=== PATIENT | female | born 1950 | race Caucasian/White ===

== ENCOUNTER 2016-12-27 08:02 | Emergency (ER) | payer OTHER, BC ==
[2016-12-27 08:18] VITALS: BP 102/54; PULSE 76; TEMP 97.5
[2016-12-27] MEDS ORDERED: TETRACAINE 0.5% OPHTH SOLN 2 ML BOTTLE ONE (08:24)
--- NOTE | 2016-12-27 08:41 | PDOC ---
History of Present Illness - General Chief Complaint: Eye Problem Stated Complaint: PAIN LEFT EYE Time Seen by Provider: 12/27/16 08:18 History Source: Patient - History of Present Illness Timing/Duration: other Severity: moderate Associated Symptoms: denies: headaches Past History - Past Medical History Allergies/Adverse Reactions: Allergies Allergy/AdvReac Type Severity Reaction Status Date / Time wheat AdvReac Intermediate joint pain Verified 12/27/16 08:12 Home Medications: Ambulatory Orders Acetaminophen [Tylenol .Regular Strength -] 650 mg PO Q6H PRN #30 tablet Arformoterol Tartrate [Brovana -] 1 neb NEB BID #60 vial 02/06/13 Cetirizine HCl [Zyrtec] 10 mg PO DAILY #0 tablet 02/06/13 Mometasone Furoate [Asmanex 220Mcg -] 2 inh IH HS #1 ih 02/06/13 Montelukast Na [Singulair -] 10 mg PO HS #30 tablet 02/06/13 Thyroid,Pork [[place] Thyroid] 30 mg PO BID #30 02/06/13 Tiotropium [place] [Spiriva] 1 inh IH DAILY #1 inh 02/06/13 Aspirin [ASA -] 81 mg PO DAILY 12/23/13 Triamcinolone Acetonide [Nasacort] 10.8 ml NS DAILY 09/16/15 Anemia: (VEIN INFECTED HOSPITALIZED X 1 WEEK) Cardiac Disorders: Yes (stent 2012) COPD: Yes Thyroid Disease: Yes - Surgical History Abdominal Surgery: Yes (ectopic ) Cardiac Surgery: Yes (STENT PLACED 07/20/13) - Immunization History Immunization Up to Date: (FLU 2011 AND PNA 2009) - Psycho/Social/Smoking Cessation Hx Anxiety: No Suicidal Ideation: No Smoking Status: No Smoking History: Former smoker Have you smoked in the past 12 months: No Number of Cigarettes Smoked Daily: 0 If you are a former smoker, when did you quit?: 25 YRS Information on smoking cessation initiated: No Hx Alcohol Use: Yes (SOCIAL) Drug/Substance Use Hx: No Substance Use Type: None Hx Substance Use Treatment: No Review of Systems - Review of Systems Constitutional: No: Chills, Fever HEENTM: Yes: Eye Pain, Blurred Vision. No: Tearing, Double Vision Neurological: No: Headache, Dizziness *Physical Exam - Vital Signs Last Vital Signs Temp Pulse Resp BP Pulse Ox 97.5 F L 76 20 102/54 99 12/27/16 08:08 12/27/16 08:08 12/27/16 08:08 12/27/16 08:08 12/27/16 08:08 - Physical Exam General Appearance: Yes: Appropriately Dressed. No: Apparent Distress HEENT: positive: Normal Voice, Other (no conjunctival erythema, tearing, discharge or chemosis, no fb on lid eversion). negative: Scleral Icterus (R), Scleral Icterus (L) Respiratory/Chest: negative: Respiratory Distress Integumentary: positive: Dry, Warm Neurologic: positive: Fully Oriented, Alert, Normal Mood/Affect Medical Decision Making - Medical Decision Making 12/27/16 08:33 66-year-old female history of sleep apnea, COPD, Joseph's thyroiditis, presenting with left eye pain that she awoke with 3 days ago. Patient describes pain as shooting in nature, intermittent and worsened this am. Complaining of cloudy vision on affected side. No FB sensation, photophobia, tearing, discharge, or double vision. Denies any trauma and does not wear contact lens. No history of similar symptoms in the past See exam Unilateral eye pain No trauma or contact lens use No conjunctival erythema or discharge to suggest conjunctivitis No fb on lid eversion and no uptake w/ toth lamp VA 20/40 in affected eye and 20/30 in unaffected eye Unable to do further testing in ED i.e slit lamp/jhoana as equipment not available Will c/w optho at this time to make arrangements for further evaluation 12/27/16 08:54 Case d/w Dr Chow, covering doc for Dr Chavis, states pt can be seen in optho office tomorrow am. Pt satisfied w/ plan and will follow up. Reasons to return to ED d/w pt 12/27/16 08:57 *DC/Admit/Observation/Transfer Diagnosis at time of Disposition: Eye pain Qualifiers: Laterality: left Qualified Code(s): H57.12 - Ocular pain, left eye - Discharge Dispostion Disposition: HOME Condition at time of disposition: Good - Patient Instructions Printed Discharge Instructions: DI for Eye Pain Additional Instructions: Please called please call ophthalmology clinic tomorrow at 9 AM. Their phone number is [phone]. There are located at [address] Please return to ER for worsening of symptoms
== END 2016-12-27 09:16 | disposition home or self-care (01) ==
LOC: JER 08:02 → JERFT 08:02
DX: H57.12 Ocular pain, left eye (principal); J44.9 Chronic obstructive pulmonary disease, unspecified; E06.3 Autoimmune thyroiditis; Z95.5 Presence of coronary angioplasty implant and graft; G47.30 Sleep apnea, unspecified
CPT/HCPCS: 99281-25

== ENCOUNTER 2018-11-11 14:46 | Observation (INO) | payer OTHER, BC ==
--- NOTE | 2018-11-11 14:53 | PDOC ---
Rapid Medical Evaluation Time Seen by Provider: 11/11/18 14:51 Medical Evaluation: Allergies Allergy/AdvReac Type Severity Reaction Status Date / Time wheat AdvReac Intermediate joint pain Verified 12/27/16 08:12 I have performed a brief in-person evaluation of this patient. The patient presents with a chief complaint of: headache and sudden loss of memory. patient's states she cannot remember anything for the past few hours, including how she got to the [place], etc. She is complaining of a headache. Pertinent physical exam findings: No facial droop. No slurred speech. No arm weakness or drooping. I have ordered the following: labs, EKG, head CT The patient will proceed to the ED for further evaluation. Discharge Disposition - Diagnosis Headache, Amnesia - Referrals - Patient Instructions - Post Discharge Activity
--- NOTE | 2018-11-11 15:04 | PDOC ---
History of Present Illness - General Chief Complaint: CVA/TIA Stated Complaint: R/O STROKE Time Seen by Provider: 11/11/18 14:51 History Source: Patient Exam Limitations: No Limitations - History of Present Illness Initial Comments: 11/11/18 17:07 68 yo F with a hx of COPD (not on home O2), CAD (s/p 1x stent 2011), and restless leg syndrome present to the emergency department with AMS and concurrent left sided headache. Per the patient, she states she doesn't remember how she got to the hospital and does not remember the events prior to presentation. Per the , he received a call approximately at 2pm from the patient's hairdresser who stated the patient was feeling "dizzy" and became acutely confused to her surroundings. When the arrived, she didn't remember where or what her coat looked like. While in the ED, she states she has been having headaches that started when she came into the emergency department. Described as dull, 6/10, non radiating, constant, without aggravating and relieving factors. 11/11/18 18:52 11/11/18 18:59 Past History - Past Medical History Allergies/Adverse Reactions: Allergies Allergy/AdvReac Type Severity Reaction Status Date / Time wheat AdvReac Intermediate joint pain Verified 12/27/16 08:12 Home Medications: Ambulatory Orders Acetaminophen [Tylenol .Regular Strength -] 650 mg PO Q6H PRN #30 tablet Arformoterol Tartrate [Brovana -] 1 neb NEB BID #60 vial 02/06/13 Cetirizine HCl [Zyrtec] 10 mg PO DAILY #0 tablet 02/06/13 Mometasone Furoate [Asmanex 220Mcg -] 2 inh IH HS #1 ih 02/06/13 Montelukast Na [Singulair -] 10 mg PO HS #30 tablet 02/06/13 Thyroid,Pork [[place] Thyroid] 30 mg PO BID #30 02/06/13 Tiotropium [place] [Spiriva] 1 inh IH DAILY #1 inh 02/06/13 Aspirin [ASA -] 81 mg PO DAILY 12/23/13 Triamcinolone Acetonide [Nasacort] 10.8 ml NS DAILY 09/16/15 Anemia: (VEIN INFECTED HOSPITALIZED X 1 WEEK) Cardiac Disorders: Yes (stent 2012) COPD: Yes Thyroid Disease: Yes - Surgical History Abdominal Surgery: Yes (ectopic ) Cardiac Surgery: Yes (STENT PLACED 07/20/13) - Immunization History Immunization Up to Date: (FLU 2011 AND PNA 2009) - Suicide/Smoking/Psychosocial Hx Smoking Status: No Smoking History: Former smoker Have you smoked in the past 12 months: No Number of Cigarettes Smoked Daily: 0 If you are a former smoker, when did you quit?: 25 YRS Information on smoking cessation initiated: No Hx Alcohol Use: Yes (socially) Drug/Substance Use Hx: No Substance Use Type: None Hx Substance Use Treatment: No *Physical Exam - Vital Signs Last Vital Signs Temp Pulse Resp BP Pulse Ox 97.3 F L 68 18 153/63 100 11/11/18 14:49 11/11/18 14:49 11/11/18 14:49 11/11/18 14:49 11/11/18 14:49 Moderate Sedation - Procedure Monitoring Vital Signs: Procedure Monitoring Vital Signs Temperature 97.3 F L 11/11/18 14:49 Pulse Rate 68 11/11/18 14:49 Respiratory Rate 18 11/11/18 14:49 Blood Pressure 153/63 11/11/18 14:49 O2 Sat by Pulse Oximetry (%) 100 11/11/18 14:49 ED Treatment Course - LABORATORY CBC & Chemistry Diagram: 11/11/18 15:09 11/11/18 14:55 Medical Decision Making - Medical Decision Making 11/11/18 17:05 It was relayed to my by the nurse that the patient began having memories of the events prior to arriving to the ED. Per the patient, she remembers going to the hair salon and feeling "unwell" but denies chest pain, SOB, nausea, palpitations , dizziness and states she "must have passed out for a few hours" because she doesnt remember getting to the emergency department. 11/11/18 18:[address] Jiménez who states that it could be TIA vs transient global amnesia vs seizure. recommends admission to observation telemetry and to do MRA of brain , neck, and TIA work up. Will admit to obs tele 11/11/18 19:29 Spoke to admitting team. will be admitted to obs tele *DC/Admit/Observation/Transfer Diagnosis at time of Disposition: Amnesia Headache Qualifiers: Headache type: unspecified Headache chronicity pattern: unspecified pattern Intractability: intractable Qualified Code(s): R51 - Headache - Referrals - Patient Instructions - Post Discharge Activity
[2018-11-11 15:17] LABS: BASO % 1.2 % (0-2.0); EOS % 4.4 % (0-4.5); HEMATOCRIT 41.5 % (32.4-45.2); HEMOGLOBIN 15.1 GM/dL (10.7-15.3); LYMPH % 19.7 % (8-40); MCH 35.3 pg (25.7-33.7); MCHC 36.4 g/dl (32.0-36.0); MEAN CELL VOLUME 96.8 fl (80-96); MEAN PLT VOLUME 8.4 fl (7.5-11.1); MONO % 9.8 % (3.8-10.2); NEUT % 64.9 % (42.8-82.8); PLATELET COUNT 364 K/MM3 (134-434); RBC 4.29 M/mm3 (3.60-5.2); WHITE BLOOD COUNT 9.8 K/mm3 (4.0-10.0)
[2018-11-11 15:29] LABS: INR 1.1 (0.83-1.09)
--- NOTE | 2018-11-11 15:50 | PDOC ---
Attending Attestation - HPI HPI: This patient is a 68 year old female with PMHx of COPD (recent exacerbation 3 weeks ago), Joseph's thyroiditis, HTN, CAD s/p stent x 1 (2011), anemia, renal colic, restless leg syndrome, who was BIBA and presents with acute AMS since 2 pm. Patients states that she was at the hairdresser today and he was called by the hairdresser who told him that she was acting strange and forgot where she was at.The hairdresser told him that at some point she had a near syncopal episode and they had to lay her down. When her arrived to pick her up her states that she didnt remember paying and that she didnt recognize her own coat. Presently, she doesnt seem to recall [facility] nor does she recall how she got here to the ED. denies previous h/o AMS. states that 5 weeks ago she saw Neurology - Dr. Perez for right facial droop but her brain MRI came back with no evidence of acute infarct or intracerebral hemorrhage. Patient currently notes dull, achy, left temporal headache, rates 5/10. She also notes some blurry vision in left eye. Denies any fever, chills, nausea, vomiting, chest pain, shortness of breath, abdominal pain, dysuria, hematuria, diarrhea. Denies any ear, nose, or throat pain. Social Hx: social EtOH use, former cigarette smoker Family Hx: Brother- Parkinsons PMD: Balaji Burgess Neurologist: Dr. Perez 11/11/18 16:44 <Ammy Rajan - Last Filed: 11/11/18 18:03> - Resident Resident Name: Jaswant Marin - ED Attending Attestation I have performed the following: I have examined & evaluated the patient, The case was reviewed & discussed with the resident, I agree w/resident's findings & plan, Exceptions are as noted - Physicial Exam PE: 11/11/18 16:25 GENERAL: The patient is awake, alert, and oriented x 2 (self, place) HEAD: Normocephalic, atraumatic. EYES: extraocular movements intact, sclera anicteric, conjunctiva clear. ENT: Normal voice, Moist mucous membranes. NECK: Normal range of motion, supple LUNGS: Breath sounds equal, clear to auscultation bilaterally. No wheezes, no rhonchi, no rales. HEART: Regular rate and rhythm, normal S1 and S2 without murmur, rub or gallop. ABDOMEN: Soft, nontender, normoactive bowel sounds. No guarding, no rebound. . No CVA tenderness EXTREMITIES: Normal range of motion, no edema. No clubbing or cyanosis. No cords, erythema, or tenderness. NEUROLOGICAL: No facial assymetry, Normal speech, movinga l 4 extremities spontaneously and symmetrically, sensation intact throughout PSYCH: Normal mood, normal affect. SKIN: Warm, Dry, normal turgor, - Medical Decision Making 11/11/18 15:50 68y F hx of hx of COPD (s/p levauin), CAD (stent in 2011), RLS presents with AMS starting approx 2pm. Pt was at hairdressor, and pt seemed confused, and unable to remember where she was. was called and upon arrival pt was altered, and could not remember things from 30 seconds ago (ie: paying and tipping the pt). amnesia seemed to extend to several hours ago (couldnt remember the went to work), couldnt remember how she got to the ED. pt endorses mild left frontal headache. no prior history of these episodes int he past no focal neuro deficits beside not knowing the date ddx - cva, tga, ?MS - recent history of R sided facial droop, had and MR as outpatient that showed some changes will ck labs to r/ anemia, metabolic dearngeent ekg to scren ofr arrythmia will give ASA will dw neurology 11/11/18 18:53 A portion of this note was documented by scribe services under my direction. I have reviewed the details of the note, within reason, and agree with the documentation with the following case summary and management plan written by me <Mane Buchanan - Last Filed: 11/11/18 18:53> Heart Score/ECG Review - ECG Impressions Comment:: 11/11/18 16:30 Twelve-lead EKG was performed and reviewed by me. There is normal sinus rhythm with a normal rate. rate of 71 TWI in V1, V2 <Mane Buchanan - Last Filed: 11/11/18 18:53>
[2018-11-11 16:23] LABS: URINE APPEARANCE SLCLOUDY; URINE BILIRUBIN NEGATIVE (<2.0 mg/dL); URINE COLOR DKYELLOW; URINE GLUCOSE (UA) NEGATIVE (NEGATIVE); URINE KETONE TRACE (NEGATIVE); URINE LEUK ESTERASE NEGATIVE (NEGATIVE); URINE NITRITE NEGATIVE (NEGATIVE); URINE PROTEIN NEGATIVE (NEGATIVE); URINE UROBILINOGEN NEGATIVE mg/dL (0.2-1.0)
[2018-11-11] MEDS ORDERED: ASPIRIN 81 MG CHEWABLE TABLETS PO ONE (16:30)
[2018-11-11] MEDS ORDERED: ASPIRIN 81 MG CHEWABLE TABLETS ONE (16:58)
[2018-11-11] MEDS ORDERED: ACETAMINOPHEN 1000 MG/100 ML VIAL (NON FORMULARY) IVPB ONE (17:05)
[2018-11-11 17:24] LABS: ALK PHOS 88 U/L (45-117); ANION GAP 9 MMOL/L (8-16); BILIRUBIN,TOTAL 0.5 mg/dL (0.2-1); BLOOD UREA NITROGEN 23 mg/dL (7-18); CALCIUM 9.7 mg/dL (8.5-10.1); CHLORIDE 111 mmol/L (98-107); CO2 19 mmol/L (21-32); CREATININE 0.9 mg/dL (0.55-1.3); GLUCOSE,RANDOM 163 mg/dL (74-106); POTASSIUM 4.2 mmol/L (3.5-5.1); SGOT/AST 23 U/L (15-37); SGPT/ALT 28 U/L (13-61); SODIUM 140 mmol/L (136-145); TOT PROT 6.4 g/dl (6.4-8.2)
[2018-11-11] MEDS ORDERED: ACETAMINOPHEN INJECTION 100 ML IVPB ONE (17:29)
[2018-11-11 17:30] LABS: COCAINE, UR NEGATIVE ng/ml (CUTOFF=300); METHADONE, UR NEGATIVE ng/ml (CUTOFF=300); OPIATES, URI NEGATIVE ng/ml (CUTOFF=300); PHENCYCLIDINE,URINE NEGATIVE ng/ml (CUTOFF=25); URINE AMPHETAMINES NEGATIVE ng/ml (CUTOFF=500); URINE BARBITURATES NEGATIVE ng/ml (CUTOFF=200); URINE BENZODIAZEPINES NEGATIVE ng/ml (CUTOFF=200)
--- NOTE | 2018-11-11 21:02 | PN ---
Teaching Attending Note Name of Resident: Edvin Cherry ATTENDING PHYSICIAN STATEMENT I saw and evaluated the patient. I reviewed the resident's note and discussed the case with the resident. I agree with the resident's findings and plan as documented. SUBJECTIVE: Seen and examined with resident; please refer to their documentation for further historical information. Briefly, this is a 68 y/o female who is being admitted for neurologic symptoms experienced outside the hospital during the day. She was at her hairdresser when she forgt where she was, why she was there , and was not making any sense. It started around 2PM. She doesn't recall what happened. She started getting confused and unsteady; she forgot she paid her bill, forgot where her coat was, when she was in the washroom she was confused and thought 'her body was losing all its water.' No syncope or presyncope. No convulsive activity witnessed. No FND. NIHSS is 0 when I saw her in the ER. The symptoms have resolved completely now but she doesn't remember them. She sees Dr. Perez for neuro; she has RLS and was recently placed on a new medication for this. She had a MRI done as an outpatient for a R-facial droop several weeks ago with her neurologist and the report is per the computer. Dr. Jiménez called by ER and his recommendations are as documented in ER notes; states that this is TIA vs. transient amnesia vs. seizure. She denies any chest pain, sob, etc. The facial droop that there was discussed earlier in September when she had the MRI does not appear to be present at this juncture. Admit to medicine with neurology consult. 10 sys ROS done and negative aside from HPI OBJECTIVE: VS, labs, imaging reviewed NAD, AAOx3, resting in wheelchair comfortably Alert and keenly responsive with memory intact and no sensory or motor disturbances noted in any limb. No cerebellar findings noted. Speech intact, no dysphagia, muscle tone normal. RRR s1/2 no mgr Lungs CTAB w/ sym exp NT ND +BS Labs: Imaging: EKG reviewed; some inverted T-waves in the precordial leads ASSESSMENT AND PLAN: Mrs. Andujar presents with a transient alteration in awareness; neurology suspects TIA vs. transient amnesia vs. seizure. She is incidentally found to have troponemia. Her NIHSS is currently 0. 1) Transient alteration in awareness -Ddx per neuro TIA vs. transient amnesia vs. seizure. Admit to tele with neuro checks and seizure and fall precautions. -Check TSH, A1c, Lipids. Checking B12, esr -Followup MRA head/neck, carotid dopplers final reports. MRI results reviewed from outpatient study; white matter disease with ?demyelination and small vessel disease. prelim results from aforementioned studies show normal cerebrl MRV and normal cervical mra. -Neurology is following; defer ultimate management to them. -ASA given; continue daily. Followup echo. -PT, bedside swallow eval 2) Troponemia -EKG with aforementioned ST-T changes but no classic sx. Still, ACS can present atypically in a female so will have suspicion especially given her risk factors. Monitor tele, trend troponin. Would be helpful to refer her hold CV records. Check repeat EKG to see if any evolving changes. Could be from demand or a noncardiac source (consider in ddx neurological causes elevated trop) 3) CAD s/p remote PCI -Continue home meds; stable without issues but does have positive troponin discussed above -ASA; reconcile home meds and continue appropriate ones after verifying 4) Low Co2 -Repeat BMP now; trend. 5) Macrocytosis without anemia -Check folate and B12; monitor CBC 6) RLS -Verify and continue home meds if OK with neuro 7) H/O COPD -Not in exacerbation; continue home medications. FENA -LR@75 for 1L -PRN replete -Bedside swallow eval -As tolerated Full Code
--- NOTE | 2018-11-11 22:39 | HP ---
CHIEF COMPLAINT: memory loss PCP: HISTORY OF PRESENT ILLNESS: 68 y/o female with PMH of COPD (not on home o2), CAD (s/p stent in 2011), Hashimotos Thyroiditis, restless leg syndrome, anemia, was brought in by her after having an episode at the [employer] where she got dizzy and then could not remember exactly what had happened to her. per the , he was called by the hairdresser after she was noted to be confused, got dizzy - when her got to the hairdresser,she did not remember having paid the hairdresser, did not remember which jacket was hers etc. Nothing like this has ever happened to her before. Of note brought patient to Dr. Emmanuel for about 5 weeks ago for a right facial droop where a brain MRI was done showing no acute pathology, however, it did show white matter changes with questionable demyelinating processes. Upon arrival to the ED patient was alert and oriented times 3. She denies recent travel or any sick contacts. Patient was also complaining of a headache at the time of the episode. ER course was notable for: (1)Head CT showing no cute pathology, however, showing moderate atrophy and chronic microvascular ischemic changes (2)Dr. Jiménez was consulted from the ER, however, patient sees Dr. Galloway (3)ASA 162 given once; patient also found to have elevated troponin Recent Travel: none PAST MEDICAL HISTORY: see above PAST SURGICAL HISTORY: ectopic pregancy, sinus surgery Social History: Smoking:former smoker; used to smoke 1 pack every 3 weeks- quit 25 years ago Alcohol:social alcohol user- drinks a few glasses of wine/week Drugs: denies Family History: brother has parkinsons; cardiac disease on both sides Allergies No Known Drug Allergies Allergy (Verified 11/11/18 19:32) wheat Adverse Reaction (Intermediate, Verified 11/11/18 19:32) joint pain HOME MEDICATIONS: Home Medications Medication Instructions Recorded Arformoterol Tartrate [Brovana -] 1 neb NEB BID #60 vial 02/06/13 Mometasone Furoate [Asmanex 220Mcg 2 inh IH HS #1 ih 02/06/13 -] Montelukast Na [Singulair -] 10 mg PO HS #30 tablet 02/06/13 Thyroid,Pork [[place] Thyroid] 30 mg PO BID #30 02/06/13 Tiotropium [place] [Spiriva] 1 inh IH DAILY #1 inh 02/06/13 Aspirin [ASA -] 81 mg PO DAILY 12/23/13 Triamcinolone Acetonide [Nasacort] 10.8 ml NS DAILY 09/16/15 REVIEW OF SYSTEMS CONSTITUTIONAL: Absent: fever, chills, diaphoresis, generalized weakness, malaise, loss of appetite, weight change HEENT: Absent: rhinorrhea, nasal congestion, throat pain, throat swelling, difficulty swallowing, mouth swelling, ear pain, eye pain, visual changes CARDIOVASCULAR: Absent: chest pain, syncope, palpitations, irregular heart rate, lightheadedness , peripheral edema RESPIRATORY: Absent: cough, shortness of breath, dyspnea with exertion, orthopnea, wheezing, stridor, hemoptysis GASTROINTESTINAL: Absent: abdominal pain, abdominal distension, nausea, vomiting, diarrhea, constipation, melena, hematochezia GENITOURINARY: Absent: dysuria, frequency, urgency, hesitancy, hematuria, flank pain, genital pain MUSCULOSKELETAL: Absent: myalgia, arthralgia, joint swelling, back pain, neck pain SKIN: Absent: rash, itching, pallor HEMATOLOGIC/IMMUNOLOGIC: Absent: easy bleeding, easy bruising, lymphadenopathy, frequent infections ENDOCRINE: Absent: unexplained weight gain, unexplained weight loss, heat intolerance, cold intolerance NEUROLOGIC: Present: headache, mental status changes Absent: , focal weakness or paresthesias, dizziness, unsteady gait, seizure, , bladder or bowel incontinence PSYCHIATRIC: Absent: anxiety, depression, suicidal or homicidal ideation, hallucinations. PHYSICAL EXAMINATION Vital Signs - 24 hr 11/11/18 14:49 Temperature 97.3 F L Pulse Rate 68 Respiratory 18 Rate Blood Pressure 153/63 O2 Sat by Pulse 100 Oximetry (%) GENERAL: Awake, alert and oriented times 3 in no acute distress. EYES: EOMI: PEERLA; no scleral icterus NECK: no JVD, no lymphadenopathy LUNGS: CTA B/L; no rales, rhonchi or wheezing HEART: Regular rate and rhythm, normal S1 and S2 without murmur, rub or gallop. ABDOMEN: Soft, nontender, not distended, normoactive bowel sounds, no guarding, no rebound, no masses. No hepatomegaly or splenomegaly. MUSCULOSKELETAL: Normal range of motion at all joints. No bony deformities or tenderness. No CVA tenderness. EXTREMITIES: warm; well-perfused, no clubbing/cyanosis or edema NEUROLOGICAL: Cranial nerves II-XII intact. Normal speech. Normal gait sensation intact B/L; 5/5 strength B/L upper and lower extremities PSYCHIATRIC: Cooperative. Good eye contact. Appropriate mood and affect. SKIN: Warm, dry, normal turgor, no rashes or lesions noted, normal capillary refill. Laboratory Results - last 24 hr 11/11/18 11/11/18 11/11/18 14:55 15:09 15:09 WBC 9.8 RBC 4.29 Hgb 15.1 Hct 41.5 MCV 96.8 H MCH 35.3 H MCHC 36.4 H RDW 13.0 Plt Count 364 MPV 8.4 Absolute Neuts (auto) 6.3 Neutrophils % 64.9 Lymphocytes % 19.7 Monocytes % 9.8 Eosinophils % 4.4 Basophils % 1.2 Nucleated RBC % 0 PT with INR 13.00 INR 1.10 H Sodium 140 Potassium 4.2 Chloride 111 H Carbon Dioxide 19 L Anion Gap 9 BUN 23 H Creatinine 0.9 Creat Clearance w eGFR > 60 Random Glucose 163 H Calcium 9.7 Total Bilirubin 0.5 AST 23 ALT 28 Alkaline Phosphatase 88 Creatine Kinase Troponin I C-Reactive Protein < 0.3 Total Protein 6.4 Albumin 4.0 Urine Color Urine Appearance Urine pH Ur Specific [place] Urine Protein Urine Glucose (UA) Urine Ketones Urine Blood Urine Nitrite Urine Bilirubin Urine Urobilinogen Ur Leukocyte Esterase Opiates Screen Methadone Screen Barbiturate Screen Phencyclidine Screen Ur Amphetamines Screen MDMA (Ecstasy) Screen Benzodiazepines Screen Cocaine Screen U Marijuana (THC) Screen 11/11/18 11/11/18 11/11/18 15:09 16:10 16:50 WBC RBC Hgb Hct MCV MCH MCHC RDW Plt Count MPV Absolute Neuts (auto) Neutrophils % Lymphocytes % Monocytes % Eosinophils % Basophils % Nucleated RBC % PT with INR INR Sodium Potassium Chloride Carbon Dioxide Anion Gap BUN Creatinine Creat Clearance w eGFR Random Glucose Calcium Total Bilirubin AST ALT Alkaline Phosphatase Creatine Kinase 78 Troponin I 0.14 H C-Reactive Protein Total Protein Albumin Urine Color Dkyellow Urine Appearance Slcloudy Urine pH 6.0 Ur Specific [place] 1.009 L Urine Protein Negative Urine Glucose (UA) Negative Urine Ketones Trace H Urine Blood Negative Urine Nitrite Negative Urine Bilirubin Negative Urine Urobilinogen Negative Ur Leukocyte Esterase Negative Opiates Screen Negative Methadone Screen Negative Barbiturate Screen Negative Phencyclidine Screen Negative Ur Amphetamines Screen Negative MDMA (Ecstasy) Screen Negative Benzodiazepines Screen Negative Cocaine Screen Negative U Marijuana (THC) Screen Negative ASSESSMENT/PLAN: 68 y/o female with PMH of COPD (not on home o2), CAD (s/p stent in 2011), hashimotos thyroiditis, anemia, restless leg syndrome, was brought into the ED by her after having a transient episode of forgetfulness and 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 #Possible TIA v. ? transient global amnesia patient possibly had a TIA given the description and time frame of the episode -NIH scale 0 -head CT showed no acute pathology, however, showed chronic microvascular ischemic changes -Dr Jiménez was consulted by the ER, however, patient sees Dr. Streeter -MRA/MRV done; final read pending -echo/carotid dopplers ordered -neuro checks q4 -seizure precautions #Elevated Troponin patient came in with an elevated troponin at 0.14 on admission, however no complaints of CP -trending troponins -repeat EKG -lipid panel pending/Hba1c #CAD -c/w baby ASA 81 daily -will try and obtain records as to where patient had stent done etc -repeat EKG #Low Co2 -stat repeat BMP- trending #COPD patient see Dr. Farrell as an outpatient -c/w home medications -will call patients pharmacy in AM to verify meds #Joseph's Thyroidits -TSH level pending -c/w home medications #Anemia -patients Hgb stable upon arrival at 15 macrocytosis present; checking b12 and folate F/E?N LR @75 monitor bmp bedside swallow eval- NPO DVt PPX SCDS Problem List - Problem (1) Amnesia Code(s): R41.3 - OTHER AMNESIA (2) Headache Code(s): R51 - HEADACHE Qualifiers: Headache type: unspecified Headache chronicity pattern: unspecified pattern Intractability: intractable Qualified Code(s): R51 - Headache (3) Dizziness Code(s): R42 - DIZZINESS AND GIDDINESS Visit type - Emergency Visit Emergency Visit: Yes ED Registration Date: 11/11/18 Care time: The patient presented to the Emergency Department on the above date and was hospitalized for further evaluation of their emergent condition. - New Patient This patient is new to me today: Yes Date on this admission: 11/12/18 - Critical Care Critical Care patient: No
[2018-11-11] MEDS: ACETAMINOPHEN 500 MG TABLET (FP) PO PRN (22:48)
[2018-11-12 02:11] VITALS: BMI 20.2
[2018-11-12] MEDS ORDERED: LACTATED RINGERS SOLUTION 1,000 ML/1,000 ML INFUS.BAG IV SCH (02:15)
[2018-11-12 02:53] LABS: ANION GAP 8 MMOL/L (8-16); BLOOD UREA NITROGEN 27 mg/dL (7-18); CALCIUM 8.8 mg/dL (8.5-10.1); CHLORIDE 114 mmol/L (98-107); CO2 22 mmol/L (21-32); GLUCOSE,RANDOM 84 mg/dL (74-106); POTASSIUM 4.1 mmol/L (3.5-5.1); SODIUM 143 mmol/L (136-145)
[2018-11-12] MEDS: ACETAMINOPHEN 500 MG TABLET (FP) PO PRN ×2 (06:41→13:29)
[2018-11-12 07:20] LABS: HEMATOCRIT 38.8 % (32.4-45.2); HEMOGLOBIN 13.5 GM/dL (10.7-15.3); MCHC 34.8 g/dl (32.0-36.0); MEAN CELL VOLUME 97.7 fl (80-96); MEAN PLT VOLUME 8.7 fl (7.5-11.1); PLATELET COUNT 368 K/MM3 (134-434); RBC 3.97 M/mm3 (3.60-5.2); RDW 13.5 % (11.6-15.6); WHITE BLOOD COUNT 8.4 K/mm3 (4.0-10.0)
[2018-11-12 07:51] LABS: ALBUMIN 3.4 g/dl (3.4-5.0); ALK PHOS 73 U/L (45-117); ANION GAP 8 MMOL/L (8-16); BILIRUBIN,TOTAL 0.4 mg/dL (0.2-1); BLOOD UREA NITROGEN 22 mg/dL (7-18); CALCIUM 8.8 mg/dL (8.5-10.1); CHLORIDE 114 mmol/L (98-107); CHOLESTEROL 152 mg/dL (50-200); CO2 21 mmol/L (21-32); CREATININE 0.9 mg/dL (0.55-1.3); GLUCOSE,RANDOM 69 mg/dL (74-106); HDL CHOLESTEROL 64 mg/dL (40-60); MAGNESIUM 2.2 mg/dL (1.8-2.4); POTASSIUM 4.4 mmol/L (3.5-5.1); SGOT/AST 18 U/L (15-37); SGPT/ALT 23 U/L (13-61); SODIUM 144 mmol/L (136-145); TOT PROT 5.6 g/dl (6.4-8.2); TRIGLYCERIDES 44 mg/dL (0-150)
[2018-11-12] MEDS ORDERED: ARFORMOTEROL TARTRATE 15 MCG/2 ML VIAL NEB SCH (08:00)
[2018-11-12] MEDS ORDERED: PT OWN MED DRAWER 7, Y5N ONE (09:06)
--- NOTE | 2018-11-12 09:50 | PN ---
Progress Note, Physician Chief Complaint: Ms Andujar says she is feeling much better today. Denies cp, sob, n/v. States still does not remember time between being at the [facility] and coming to the hospital. - Current Medication List Current Medications: Active Medications Acetaminophen (Tylenol -) 500 mg PO Q6H PRN PRN Reason: HEADACHE Last Admin: 11/12/18 06:41 Dose: 500 mg Arformoterol Tartrate (Brovana (Restricted To Pulmonology/Resp) -) 1 amp NEB RBID [facility] Last Admin: 11/12/18 08:02 Dose: 1 amp Aspirin (Asa -) 81 mg PO DAILY [facility] Last Admin: 11/12/18 09:18 Dose: 81 mg Fluticasone Propionate (Flonase -) 2 spray NS DAILY [facility] Last Admin: 11/12/18 09:12 Dose: 2 spray Lactated Ringer's (Lactated Ringers Solution) 1,000 ml in 1,000 mls @ 75 mls/ hr IV ASDIR [facility] Last Admin: 11/12/18 04:19 Dose: 75 mls/hr Mometasone Furoate (Asmanex 220mcg -) 2 puff IH HS FRANCES Montelukast Sodium (Singulair -) 10 mg PO HS FRANCES Thyroid ([place] Thyroid -) 30 mg PO BID [facility] Last Admin: 11/12/18 09:12 Dose: 30 mg Tiotropium [place] (Spiriva Respimat) 2 puff IH DAILY [facility] Last Admin: 11/12/18 09:12 Dose: 2 puff - Objective Vital Signs: Vital Signs Temperature 36.6 C 11/12/18 06:00 Pulse Rate 70 11/12/18 06:00 Respiratory Rate 18 11/12/18 06:00 Blood Pressure 140/87 11/12/18 06:00 O2 Sat by Pulse Oximetry (%) 99 11/12/18 01:35 Constitutional: Yes: Well Nourished, No Distress, Calm Cardiovascular: Yes: Regular Rate and Rhythm. No: Gallop, Murmur, Rub Respiratory: Yes: Regular, CTA Bilaterally. No: Rales, Rhonchi, Wheezes Gastrointestinal: Yes: Normal Bowel Sounds, Soft. No: Distention, Tenderness Extremities: Yes: WNL Edema: No Labs: CBC, BMP 11/12/18 05:50 11/12/18 05:50 INR, PTT INR 1.10 (0.83-1.09) H 11/11/18 15:09 Problem List - Problems (1) Elevated troponin I level Assessment/Plan: -noted to have slight elevation of troponins -unclear why -ECHO ordered -will consult cardiology for further evaluation -has peaked, now trending down Code(s): R74.8 - ABNORMAL LEVELS OF OTHER SERUM ENZYMES (2) Amnesia Assessment/Plan: -MRI head/neck read reviewed -neurology consulted and awaiting recommendations Code(s): R41.3 - OTHER AMNESIA (3) Headache Assessment/Plan: -resolved Code(s): R51 - HEADACHE Qualifiers: Headache type: unspecified Headache chronicity pattern: unspecified pattern Intractability: intractable Qualified Code(s): R51 - Headache (4) Hypothyroidism Assessment/Plan: -TSH very low -will check FT4 -decrease armour thyroid to 30mg daily Code(s): E03.9 - HYPOTHYROIDISM, UNSPECIFIED
[2018-11-12] MEDS ORDERED: FLUTICASONE PROP 0.05% 16 GM NASAL SPRAY NS SCH (10:00)
[2018-11-12] MEDS ORDERED: ASPIRIN 81 MG CHEWABLE TABLETS PO SCH (10:00)
[2018-11-12] MEDS ORDERED: THYROID 30 MG TABLET PO SCH (10:00)
[2018-11-12] MEDS ORDERED: TIOTROPIUM BROMIDE 2.5 MCG (SPIRIVA) RESPIMAT INHALER IH SCH (10:00)
--- NOTE | 2018-11-12 11:24 | CONSULT ---
Consult Consult Specialty:: Cardiology Referred by:: Medicine Reason for Consultation:: (+) Troponin - History of Present Illness Chief Complaint: Dizziness with altered mental state History of Present Illness: 68 yo female Known cardiovascular disease follow by pl sql developer (dr. Franco) and last appointment was 2 months ago Known CAD with prior PCI to LAD in 2013 done at [facility] Also been told she has aortic aneurysm, unknown size but being followed by Dr. Franco. 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 Witness by her who told her she was talking during that time she recalls no prodromal complaints of palpitations, chest pain or dyspnea No known prior h/o Afib No prior CVA or ME She is followed by neurology for RLS as well as Parkinon's symptoms and was recently started on Mirapex about 2-3 weeks ago Her functional capacity at home is quite good as she is enrolled in pulmonary rehab and rides a stationary bike 30 mins 3x per week without cardiovascular symptoms. 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: Yes: Parkinson's Cardio/Vascular: Yes: Aneurysm, CAD Pulmonary: Yes: COPD - Alcohol/Substance Use Hx Alcohol Use: Yes (socially) - Smoking History Smoking history: Former smoker Have you smoked in the past 12 months: No Aproximately how many cigarettes per day: 0 If you are a former smoker, when did you quit?: 25 YRS Home Medications - Allergies Allergies/Adverse Reactions: Allergies Allergy/AdvReac Type Severity Reaction Status Date / Time No Known Drug Allergies Allergy Verified 11/11/18 19:32 wheat AdvReac Intermediate joint pain Verified 11/11/18 19:32 - Home Medications Home Medications: Ambulatory Orders Arformoterol Tartrate [Brovana -] 1 neb NEB BID #60 vial 02/06/13 Mometasone Furoate [Asmanex 220Mcg -] 2 inh IH HS #1 ih 02/06/13 Montelukast Na [Singulair -] 10 mg PO HS #30 tablet 03/11/13 Thyroid,Pork [[place] Thyroid] 30 mg PO BID #30 02/06/13 Tiotropium [place] [Spiriva] 1 inh IH DAILY #1 inh 02/06/13 Aspirin [ASA -] 81 mg PO DAILY 12/23/13 Triamcinolone Acetonide [Nasacort] 10.8 ml NS DAILY 09/16/15 Family Disease History - Family Disease History Family History: Unremarkable Review of Systems - Review of Systems Constitutional: reports: No Symptoms Eyes: reports: No Symptoms HENT: reports: No Symptoms Neck: reports: No Symptoms Cardiovascular: reports: No Symptoms Respiratory: reports: SOB, SOB on Exertion Gastrointestinal: reports: No Symptoms Genitourinary: reports: No Symptoms Musculoskeletal: reports: No Symptoms Integumentary: reports: No Symptoms Neurological: reports: Confusion, Dizziness, Headache Physical Exam Vital Signs: Vital Signs Temperature 97.9 F 11/12/18 06:00 Pulse Rate 70 11/12/18 06:00 Respiratory Rate 18 11/12/18 06:00 Blood Pressure 140/87 11/12/18 06:00 O2 Sat by Pulse Oximetry (%) 99 11/12/18 01:35 Constitutional: Yes: Well Nourished, No Distress, Calm Eyes: Yes: WNL, Conjunctiva Clear HENT: Yes: WNL, Atraumatic Neck: Yes: WNL, Trachea Midline Cardiovascular: Yes: Regular Rate and Rhythm Respiratory: Yes: CTA Bilaterally Gastrointestinal: Yes: WNL, Normal Bowel Sounds Musculoskeletal: Yes: WNL Extremities: Yes: WNL Edema: No Labs: CBC, BMP 11/12/18 05:50 11/12/18 05:50 Imaging - Results EKG: Image Reviewed (ECG on11/11/2018 at 15:20 showed NSR with left atrial enlargement and T-wave inversions in leads V1-V2 along with non-specific ST changes.) Assessment/Plan 68 yo female with CAD s/p PCI 2012, COPD, aortic aneurysm now with altered mental status and (+) troponin 1) (+) troponin -While she has ASCVD and prior PCI, she denies any cardiovascular symptoms and her ECG is unremarkable at this time -Not consistent with ACS -Would continue her current cardiovascular regimen with asa and trend troponin 2) Altered mental status -Sounds neurological in etiology, awaiting neurology to see -If TIA is of concern, continue tele for another 24 hours, although no h/o AFib but her LA is large on ECG -Reasonable to check an echo (for purpose of assessing her LV function and LA size) 3) Aortic aneurysm -Would get records of location (Ascending vs descending)
[2018-11-12 14:40] VITALS: BP 123/69; PULSE 68; TEMP 98.2
--- NOTE | 2018-11-12 14:45 | CON.NEURO ---
Consult - History of Present Illness History of Present Illness: covering for DR MOULTON 68 y/o female with PMH of COPD (not on home o2), CAD (s/p stent in 2011), Hashimotos Thyroiditis, restless leg syndrome, anemia, was brought in by her after having an episode at the [employer] where she got dizzy and then could not remember exactly what had happened to her. per the , he was called by the hairdresser after she was noted to be confused, got dizzy - when her got to the hairdresser,she did not remember having paid the hairdresser, did not remember which jacket was hers etc. Nothing like this has ever happened to her before. Of note brought patient to Dr. Emmanuel for about 5 weeks ago for a right facial droop where a brain MRI was done showing no acute pathology, however, it did show white matter changes with questionable demyelinating processes. Upon arrival to the ED patient was alert and oriented times 3. She denies recent travel or any sick contacts. Patient was also complaining of a headache at the time of the episode. This AM , she complains of JENKINS TOX (-). TSH low, ESR 6 Impression: Unremarkable examination. no acute stroke, There is no evidence of hemodynamically significant stenosis at the common carotid bifurcation, bilaterally by NASCET criteria Limited MRV of the neck, as described above. Flow is present within the sigmoid sinus and jugular vein, bilaterally. However, correlation with jugular venous ultrasound or CT venogram would be more sensitive for further evaluation. Correlate clinically. An MRV of the brain was performed. Source and MIP images were reviewed. The superior sagittal sinus, transverse and sigmoid sinus are patent, bilaterally. Visualized portion of the jugular veins appear unremarkable. The inferior sagittal and straight sinus is also patent. Deep cerebral veins appear unremarkable. Impression: Unremarkable examination. 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 Cardio/Vascular: Yes: Aneurysm, CAD Pulmonary: Yes: COPD - Alcohol/Substance Use Hx Alcohol Use: Yes (socially) - Smoking History Smoking history: Former smoker Have you smoked in the past 12 months: No Aproximately how many cigarettes per day: 0 If you are a former smoker, when did you quit?: 25 YRS Home Medications - Allergies Allergies/Adverse Reactions: Allergies Allergy/AdvReac Type Severity Reaction Status Date / Time No Known Drug Allergies Allergy Verified 11/11/18 19:32 wheat AdvReac Intermediate joint pain Verified 11/11/18 19:32 - Home Medications Home Medications: Ambulatory Orders Arformoterol Tartrate [Brovana -] 1 neb NEB BID #60 vial 02/06/13 Mometasone Furoate [Asmanex 220Mcg -] 2 inh IH HS #1 ih 02/06/13 Montelukast Na [Singulair -] 10 mg PO HS #30 tablet 02/06/13 Thyroid,Pork [[place] Thyroid] 30 mg PO BID #30 02/06/13 Tiotropium [place] [Spiriva] 1 inh IH DAILY #1 inh 02/06/13 Aspirin [ASA -] 81 mg PO DAILY 12/23/13 Triamcinolone Acetonide [Nasacort] 10.8 ml NS DAILY 09/16/15 Physical Exam-Neuro Vital Signs: Vital Signs Temperature 98.2 F 11/12/18 13:45 Pulse Rate 68 11/12/18 13:45 Respiratory Rate 18 11/12/18 13:45 Blood Pressure 123/69 11/12/18 13:45 O2 Sat by Pulse Oximetry (%) 99 11/12/18 01:35 Labs: CBC, BMP 11/12/18 05:50 11/12/18 05:50 INR, PTT INR 1.10 (0.83-1.09) H 11/11/18 15:09 - Neuro Exam Level Of Consciousness: Yes: Alert, Oriented to Person (EOMI, VFF, no facial, oriented x 3 , no focal weakness ) Problem List - Problems (1) Transient global amnesia Code(s): G45.4 - TRANSIENT GLOBAL AMNESIA (2) Transient global amnesia Code(s): G45.4 - TRANSIENT GLOBAL AMNESIA Assessment/Plan 68 y/o female with PMH of COPD (not on home o2), CAD (s/p stent in 2011), Hashimotos Thyroiditis, restless leg syndrome, anemia, was brought in by her after having an episode at the [employer] where she got dizzy and then could not remember exactly what had happened to her. suspect TGA event, now back to baseline, vs TIA vs seizure no evidence of a dissection MRI /MRA WNL , Doppler WNL, can do ECHO and EEG as outpt low ESR argue against temporal arteritis, though if JENKINS continues , she should have this repeated; to FU DR FREED outpt neuro cleared DR ONEIL
--- NOTE | 2018-11-12 15:53 | DS ---
Physical Examination Vital Signs: Vital Signs Temperature 36.8 C 11/12/18 13:45 Pulse Rate 68 11/12/18 13:45 Respiratory Rate 18 11/12/18 13:45 Blood Pressure 123/69 11/12/18 13:45 O2 Sat by Pulse Oximetry (%) 99 11/12/18 13:00 Labs: CBC, BMP 11/12/18 05:50 11/12/18 05:50 Discharge Summary Reason For Visit: HEACHE ALTERED MENTAL STATUS Current Active Problems Amnesia (Acute) Elevated troponin I level (Acute) Headache (Acute) Hypothyroidism (Acute) Transient global amnesia (Acute) Transient global amnesia (Acute) Hospital Course: Please refer to progress note from today for physical exam. Ms Andujar is a pleasant 68 year old female who comes in with transient amnesia. She was admitted to the hospital under observation. She had no other deficits. She was monitored on telemetry and remained in NSR. MRI of the head and neck were performed and did not show signs of CVA or any other concerns. She was seen by neurology and cleared. She had a transient small increase in troponin. This was evaluated by cardiology, ok for outpatient ECHO. It is already trending down. She was noted to have a low TSH, her [place] Thyroid will be reduced to daily. She is currently asymptomatic and stable for discharge home. 31 minutes spent in preparation of this discharge Condition: Good - Instructions Diet, Activity, Other Instructions: resume previous diet and activity. Follow up with your PCP in 7 days and schedule an outpatient Echocardiogram. Referrals: Berny Perez MD [Staff Physician] - 2 Weeks Disposition: HOME - Home Medications Comprehensive Discharge Medication List: Ambulatory Orders Arformoterol Tartrate [Brovana -] 1 neb NEB BID #60 vial 02/06/13 Mometasone Furoate [Asmanex 220Mcg -] 2 inh IH HS #1 ih 02/06/13 Montelukast Na [Singulair -] 10 mg PO HS #30 tablet 02/06/13 Tiotropium [place] [Spiriva] 1 inh IH DAILY #1 inh 02/06/13 Aspirin [ASA -] 81 mg PO DAILY 12/23/13 Triamcinolone Acetonide [Nasacort] 10.8 ml NS DAILY 09/16/15 Thyroid [[place] Thyroid] 30 mg PO DAILY #0 tablet 11/12/18
[2018-11-12] MEDS ORDERED: MOMETASONE FUROATE 220 MCG/IH INHALER IH SCH (22:00)
[2018-11-12] MEDS ORDERED: MONTELUKAST NA 10 MG TABLET PO SCH (22:00)
[2018-11-13] MEDS ORDERED: THYROID 30 MG TABLET PO SCH (10:00)
--- NOTE | 2018-11-13 12:22 | EKG ---
Test Reason : Blood Pressure : / mmHG Vent. Rate : 063 BPM Atrial Rate : 063 BPM P-R Int : 176 ms QRS Dur : 084 ms QT Int : 448 ms P-R-T Axes : 066 019 053 degrees QTc Int : 458 ms NORMAL SINUS RHYTHM LOW VOLTAGE QRS BORDERLINE ECG WHEN COMPARED WITH ECG OF 11-NOV-2018 15:20, NO SIGNIFICANT CHANGE WAS FOUND Confirmed by MAME FRIAS MD ([id number]) on 11/13/2018 12:22:26 PM Referred By: Confirmed By:MAME FRIAS MD
--- NOTE | 2018-11-13 12:28 | EKG ---
Test Reason : Blood Pressure : / mmHG Vent. Rate : 071 BPM Atrial Rate : 071 BPM P-R Int : 170 ms QRS Dur : 082 ms QT Int : 392 ms P-R-T Axes : 065 035 063 degrees QTc Int : 425 ms NORMAL SINUS RHYTHM POSSIBLE LEFT ATRIAL ENLARGEMENT NONSPECIFIC ST ABNORMALITY ABNORMAL ECG WHEN COMPARED WITH ECG OF 16-SEP-2015 13:32, NO SIGNIFICANT CHANGE WAS FOUND Confirmed by MAME FRIAS MD ([id number]) on 11/13/2018 12:27:50 PM Referred By: Confirmed By:MAME FRIAS MD
== END 2018-11-12 16:16 | disposition home or self-care (01) ==
LOC: JER 14:46 → JERBED 19:37 → J4S 11-12 00:17
PROVIDERS: ADMIT Internal Medicine; ATTEND Internal Medicine
PROC: 3E033NZ Introduction of Analgesics, Hypnotics, Sedatives into Peripheral Vein, Percutaneous Approach (ICD-10-PCS; principal; 2018-11-11)
PROC: 3E0337Z Introduction of Electrolytic and Water Balance Substance into Peripheral Vein, Percutaneous Approach (ICD-10-PCS; 2018-11-11)
PROC: 3E0F7GC Introduction of Other Therapeutic Substance into Respiratory Tract, Via Natural or Artificial Opening (ICD-10-PCS; 2018-11-11)
DX: G45.4 Transient global amnesia (principal); R40.4 Transient alteration of awareness; R51 Headache; E06.3 Autoimmune thyroiditis; I10 Essential (primary) hypertension; I25.10 Atherosclerotic heart disease of native coronary artery without angina pectoris; J44.9 Chronic obstructive pulmonary disease, unspecified; G25.81 Restless legs syndrome; Z95.5 Presence of coronary angioplasty implant and graft; Z87.891 Personal history of nicotine dependence; R79.89 Other specified abnormal findings of blood chemistry; D75.89 Other specified diseases of blood and blood-forming organs; R79.81 Abnormal blood-gas level; R77.8 Other specified abnormalities of plasma proteins; I71.9 Aortic aneurysm of unspecified site, without rupture
CPT/HCPCS: 36415; 70450-TC; 70544-TC; 70547-TC; 71046-TC-FY; 80048; 80053; 80061; 80307; 81003; 82550; 82553; 82607; 82746; 83036; 83721; 83735; 84207; 84443; 84484; 85025; 85027; 85610; 85651; 86140; 87086; 93005; 93010; 93880-TC; 94640; 96374; 99285-25; G0378; J0131

== ENCOUNTER 2018-11-15 14:46 | Observation (INO) | payer OTHER, BC ==
--- NOTE | 2018-11-15 15:00 | PDOC ---
Rapid Medical Evaluation Chief Complaint: Headache Time Seen by Provider: 11/15/18 14:54 Medical Evaluation: Allergies Allergy/AdvReac Type Severity Reaction Status Date / Time No Known Drug Allergies Allergy Verified 11/11/18 19:32 wheat AdvReac Intermediate joint pain Verified 11/11/18 19:32 11/15/18 14:56 I have performed a brief in-person evaluation of this patient. The patient presents with a chief complaint of:recurrent and worsen headache. was admitted for transglobal amnesia Pertinent physical exam findings: pale, difficulty walking , vision WNL I have ordered the following: CbC, CMP, Pt/INR, ESR, CT, EKG The patient will proceed to the ED for further evaluation. 11/15/18 15:00 Discharge Disposition - Referrals Referrals: Radha Charles MD [Primary Care Provider] - - Patient Instructions - Post Discharge Activity
[2018-11-15 15:22] LABS: HEMOGLOBIN 14.6 GM/dL (10.7-15.3); LYMPH % 27.3 % (8-40); MCH 34.3 pg (25.7-33.7); MCHC 35.7 g/dl (32.0-36.0); MEAN CELL VOLUME 96.3 fl (80-96); MEAN PLT VOLUME 8.5 fl (7.5-11.1); MONO % 8.1 % (3.8-10.2); NEUT % 59.6 % (42.8-82.8); PLATELET COUNT 391 K/MM3 (134-434); RBC 4.26 M/mm3 (3.60-5.2); RDW 13.2 % (11.6-15.6); WHITE BLOOD COUNT 12.2 K/mm3 (4.0-10.0)
[2018-11-15 15:46] LABS: ALBUMIN 4.2 g/dl (3.4-5.0); ALK PHOS 92 U/L (45-117); ANION GAP 8 MMOL/L (8-16); BILIRUBIN,TOTAL 0.4 mg/dL (0.2-1); BLOOD UREA NITROGEN 27 mg/dL (7-18); CALCIUM 9.5 mg/dL (8.5-10.1); CHLORIDE 112 mmol/L (98-107); CO2 23 mmol/L (21-32); CREATININE 1.1 mg/dL (0.55-1.3); GLUCOSE,RANDOM 104 mg/dL (74-106); POTASSIUM 4.1 mmol/L (3.5-5.1); SGOT/AST 24 U/L (15-37); SGPT/ALT 32 U/L (13-61); SODIUM 143 mmol/L (136-145)
[2018-11-15 15:52] LABS: INR 1.03 (0.83-1.09); PROTHROMBIN TIME (PATIENT) 12.1 SEC (9.7-13.0)
--- NOTE | 2018-11-15 16:53 | PDOC ---
History of Present Illness - General Chief Complaint: Headache Stated Complaint: HEADACHE Time Seen by Provider: 11/15/18 14:54 History Source: Patient Exam Limitations: No Limitations - History of Present Illness Initial Comments: 11/15/18 16:52 68 YOF with h/o patsy's thyroiditis, CAD s/p stent, COPD, restless leg syndrome, and anemia, who p/w headache and nausea. Was discharged 2 days ago after being admitted to [facility] for JENKINS with transient global amnesia, had negative MRI/MRI studies of head, neck; also carotid Doppler. It was recommended she have OP neuro appointment with EEG which she has not been able to have yet. She notes the headache is much worse today than ever before, it started this afternoon while she was choking on popcorn (her even notes having used the Heimlich maneuver on her), it is occipital and radiates bitemporally and is throbbing. Denies n/t/w focally, incontinence, retention, neck pain, dizziness/ vertigo, vision change, behavior change, slurred speech, back pain, or other symptoms. Past History - Past Medical History Allergies/Adverse Reactions: Allergies Allergy/AdvReac Type Severity Reaction Status Date / Time No Known Drug Allergies Allergy Verified 11/15/18 14:55 wheat AdvReac Intermediate joint pain Verified 11/15/18 14:55 Home Medications: Ambulatory Orders Aspirin [ASA -] 81 mg PO DAILY 12/23/13 Triamcinolone Acetonide [Nasacort] 10.8 ml NS DAILY 09/16/15 Levothyroxine Sodium [Synthroid] 75 mcg PO DAILY 11/15/18 Liothyronine Sodium [Cytomel] 5 mg PO DAILY 11/15/18 Acetaminophen [Tylenol .Regular Strength -] 650 mg PO Q6H PRN tablet 11/16/18 Ibuprofen [Motrin -] 600 mg PO Q6H PRN tablet 11/16/18 Mometasone Furoate [Asmanex 220Mcg -] 2 inh IH DAILY 11/16/18 Pramipexole Dihydrochloride [Mirapex -] 0.25 mg PO HS 11/16/18 Anemia: (VEIN INFECTED HOSPITALIZED X 1 WEEK) Cardiac Disorders: Yes (stent 2012) COPD: Yes Thyroid Disease: Yes Other medical history: global amnesia - Surgical History Abdominal Surgery: Yes (ectopic ) Cardiac Surgery: Yes (STENT PLACED 07/20/13) Neurologic Surgery: Yes (HEADINJURY) - Immunization History Immunization Up to Date: (FLU 2011 AND PNA 2009) - Suicide/Smoking/Psychosocial Hx Smoking Status: No Smoking History: Never smoked Have you smoked in the past 12 months: No Number of Cigarettes Smoked Daily: 0 If you are a former smoker, when did you quit?: 25 YRS Hx Alcohol Use: Yes (socially) Drug/Substance Use Hx: No Substance Use Type: None Hx Substance Use Treatment: No Review of Systems - Review of Systems Able to Perform ROS?: Yes Comments:: GEN: no fever, chills, malaise, generalized weakness, or weight change HEENT: no ear pain, sore throat, vision change, or eye pain CV: no chest pain, palpitations, lightheadedness, syncope, or edema RESP: no cough, wheezing, or SOB GI: nausea, no abdominal pain, vomiting, diarrhea, constipation, or white/black/ bloody stool : no dysuria, hematuria, incontinence, retention, bleeding, or discharge MSK: no new neck/back pain, muscle weakness/pain, or joint swelling/pain NEURO: headache, no seizure, vertigo, numbness, tingling, or focal weakness PSYCH: no substance use, no behavior change SKIN: no jaundice, no rash ROS otherwise negative except as noted in HPI *Physical Exam - Vital Signs Last Vital Signs Temp Pulse Resp BP Pulse Ox 97.5 F L 74 18 179/83 H 99 11/15/18 14:56 11/15/18 14:56 11/15/18 14:56 11/15/18 14:56 11/15/18 14:56 GENERAL: a bit anxious but well-appearing and pleasant older adult female, accompanied by her at bedside who aids with history, A/Ox4, no distress , answers questions appropriately HEENT: PERRLA, EOMI, moist mucous membranes NECK/BACK: no midline ttp, no spinal stepoff or deformity, no hematoma, full ROM , neck supple CARDIOVASCULAR: regular rate/rhythm, normal S1S2, no MGR, strong peripheral pulses, capillary refill <2 seconds, extremities wwp, no edema LUNGS/RESPIRATORY: no respiratory distress, CTAB GI/ABDOMEN: symmetric [id number], normoactive BS, soft, no ttp, no midline pulsatile masses : no CVA tenderness EXTREMITIES: no muscle atrophy, no acute deformity, no edema SKIN: warm and dry, no pallor, no jaundice, no rash, no bruising, no skin breakdown, no cuts, no lesions NEUROLOGICAL: NEUROLOGICAL: GCS 15, CN II-XII intact, ambulating with normal gait, no truncal ataxia, normal cerebellar tests, moving all extremities, 5/5 strength proximally and distally, no facial droop, no decreased sensation Moderate Sedation - Procedure Monitoring Vital Signs: Procedure Monitoring Vital Signs Temperature 97.5 F L 11/15/18 14:56 Pulse Rate 74 11/15/18 14:56 Respiratory Rate 18 11/15/18 14:56 Blood Pressure 179/83 H 11/15/18 14:56 O2 Sat by Pulse Oximetry (%) 99 11/15/18 14:56 Heart Score/ECG Review - [place] Comment: Sinus rhythm, rate of 67, normal axis and intervals, no ischemic changes ED Treatment Course - LABORATORY CBC & Chemistry Diagram: 11/16/18 06:30 11/16/18 06:30 - ADDITIONAL ORDERS Additional order review: Laboratory Results 11/15/18 11/15/18 15:00 15:00 PT with INR 12.10 INR 1.03 Sodium 143 Potassium 4.1 Chloride 112 H Carbon Dioxide 23 Anion Gap 8 BUN 27 H Creatinine 1.1 Creat Clearance w eGFR 49.39 Random Glucose 104 Calcium 9.5 Total Bilirubin 0.4 AST 24 ALT 32 Alkaline Phosphatase 92 Total Protein 7.0 Albumin 4.2 11/15/18 15:00 RBC 4.26 MCV 96.3 H MCHC 35.7 RDW 13.2 MPV 8.5 Neutrophils % 59.6 Lymphocytes % 27.3 D Monocytes % 8.1 Eosinophils % 4.0 Basophils % 1.0 Medical Decision Making - Medical Decision Making 68YOF recently admitted for JENKINS associated with TGA. Returns now with worse headache than she had during the admission, +nausea. Initial Vital Signs Temp Pulse Resp BP Pulse Ox 97.5 F L 74 18 179/83 H 99 11/15/18 14:56 11/15/18 14:56 11/15/18 14:56 11/15/18 14:56 11/15/18 14:56 C/f SAH, CVA, ruptured/acutely expanded aneurysm, etc. Head CT and labs pending. Laboratory Tests 11/15/18 11/15/18 11/15/18 15:00 15:00 15:00 WBC 12.2 H RBC 4.26 Hgb 14.6 Hct 41.0 MCV 96.3 H MCH 34.3 H MCHC 35.7 RDW 13.2 Plt Count 391 MPV 8.5 Absolute Neuts (auto) 7.3 Neutrophils % 59.6 Lymphocytes % 27.3 D Monocytes % 8.1 Eosinophils % 4.0 Basophils % 1.0 Nucleated RBC % 0 PT with INR 12.10 INR 1.03 Sodium 143 Potassium 4.1 Chloride 112 H Carbon Dioxide 23 Anion Gap 8 BUN 27 H Creatinine 1.1 Creat Clearance w eGFR 49.39 Random Glucose 104 Calcium 9.5 Total Bilirubin 0.4 AST 24 ALT 32 Alkaline Phosphatase 92 Total Protein 7.[address]: nothing acute. EKG: Reviewed; See HEART/ECG Section. 11/15/18 17:[address] Jiménez who saw the patient on last admission over the weekend. He notes the patient primarily sees Dr. Perez for neurology. Paging Dr. Perez for the patient. Patient has persistent JENKINS and nausea, ordered RegCarlitos ashby, Ofirmev. 11/15/18 19:30 Patient with improved but still present JENKINS. Patient admitted to inpatient med/surg, Dr. Yao. *DC/Admit/Observation/Transfer Diagnosis at time of Disposition: Nausea Headache Qualifiers: Headache type: unspecified Headache chronicity pattern: unspecified pattern Intractability: intractable Qualified Code(s): R51 - Headache - Discharge Dispostion Condition at time of disposition: Guarded Decision to Admit order: Yes - Referrals - Patient Instructions - Post Discharge Activity NIH Stroke Scale - Last Known Well Date/Time & Onset Date Last Known Well: 11/15/18 Time Last Known Well: 13:00 - Initial Evaluation Level of consciousness: Alert Ask patient the month and their age: Answers both correctly Ask patient to open & close eyes; make fist and let go: Obeys both correctly Best gaze (horizontal eye movement): Normal Visual field testing: No visual field loss Facial paresis (Show teeth/raise eyebrows/close eyes tight): Normal symmetrical movement Motor Function: Left Arm: Normal Motor Function: Right Arm: Normal (extends arm 90 (or 45) degrees for 10 seconds without drift Motor Function: Left Leg: Normal (extends leg 30 degrees for 5 seconds without drift) Motor Function: Right Leg: Normal (extends leg 30 degrees for 5 seconds without drift) Limb Ataxia: No ataxia Sensory(Use pinprick test arms,legs,trunk,face/side to side): Normal Best language (Describe picture, name items, read sentences): No Aphasia Dysarthria (read several words): Normal articulation Extinction and Inattention: No abnormality - Total Score NIH Stroke Scale Score: 0
[2018-11-15] MEDS ORDERED: METOCLOPRAMIDE HCL INJECTION 10 MG/2 ML VIAL IVPB ONE (17:18)
[2018-11-15] MEDS ORDERED: ACETAMINOPHEN 1000 MG/100 ML VIAL (NON FORMULARY) IVPB ONE (17:19)
[2018-11-15] MEDS ORDERED: ACETAMINOPHEN INJECTION 100 ML IVPB ONE (17:27)
--- NOTE | 2018-11-15 20:15 | PN ---
Teaching Attending Note Name of Resident: Lilly Charles ATTENDING PHYSICIAN STATEMENT I saw and evaluated the patient. I reviewed the resident's note and discussed the case with the resident. I agree with the resident's findings and plan as documented. SUBJECTIVE: Patient is a 68 year old woman with h/o patsy's thyroiditis, CAD s/p stent, COPD, restless leg syndrome, and anemia, who presents with headache and nausea. Was discharged 2 days ago after being admitted to [facility] for JENKINS with transient global amnesia, had negative noncontrast MRI/MRA/CT scan studies of head, neck as well carotid Doppler. Brain MRI showed findings suspicious for a demyelinating process. It was recommended she have OP neuro appointment with EEG which she has not been able to have yet. She notes the headache is much worse today than ever before, it started this afternoon while she was choking on popcorn (her even notes having used the Heimlich maneuver on her), it is occipital and radiates bitemporally and is throbbing. Denies incontinence , retention, neck pain, dizziness/vertigo, vision change, behavior change or slurred speech. OBJECTIVE: Alert Vital Signs Period Temp Pulse Resp BP Sys/Golden Pulse Ox Last 24 Hr 97.5 F 74 18 179/83 99 HEENT: No Jaundice, eye redness or discharge, PERRLA, EOMI. Normocephalic, atraumatic. External ears are normal and hearing is grossly intact. No nasal discharge. Neck: Supple, nontender. No palpable adenopathy or thyromegaly. No JVD Chest: Good effort. Clear to auscultation and percussion. Heart: Regular. No S3, rub or murmur Abdomen: Not distended, soft, nontender and no HSM. No rebound or guarding. Normoactive bowel sounds. Ext: Peripheral pulses intact. No leg edema. Skin: Warm and dry. No petechiae, rash or ecchymosis. Neuro: Alert. Oriented x3. CN 2-12 grossly intact. Sensation grossly intact in all four extremities and DTR are symmetric. Home Medications Medication Instructions Recorded Arformoterol Tartrate [Brovana -] 1 neb NEB BID #60 vial 02/06/13 Mometasone Furoate [Asmanex 220Mcg 2 inh IH HS #1 ih 02/06/13 -] Montelukast Na [Singulair -] 10 mg PO HS #30 tablet 02/06/13 Tiotropium [place] [Spiriva] 1 inh IH DAILY #1 inh 02/06/13 Aspirin [ASA -] 81 mg PO DAILY 12/23/13 Triamcinolone Acetonide [Nasacort] 10.8 ml NS DAILY 09/16/15 Levothyroxine Sodium [Synthroid] 0 mcg PO DAILY 11/15/18 Liothyronine Sodium [Cytomel] 0 mcg PO DAILY 11/15/18 Abnormal Lab Results 11/15/18 11/15/18 15:00 15:00 WBC 12.2 H MCV 96.3 H MCH 34.3 H Chloride 112 H BUN 27 H ASSESSMENT AND PLAN: 1. Intractable headache - All her brain scans have been with out contrast. Needs head CT with contrast and spinal tap. Questionable demyelination noted on MRI needs further clarification by neurology and radiology. Get Lyme studies, consult opthalmology for expert eye exam and continue pain control. Repeat BP was normal. 2. DVT prophylaxis - Lovenox 40 mg SQ q 24 hours. 3. Advance directives - Full code
--- NOTE | 2018-11-15 20:39 | PDOC ---
Attending Attestation - Resident Resident Name: ShreyaLynnetet - ED Attending Attestation I have performed the following: I have examined & evaluated the patient, The case was reviewed & discussed with the resident, I agree w/resident's findings & plan, Exceptions are as noted - HPI HPI: 11/15/18 20:33presents with severe headache and nausea. HPI she recently was discharged from [facility] after a neurology w/u for headache with TGA case discussed w Dr Ballesteros and pt will be admitted 11/15/18 20:41 - Physicial Exam PE: 11/15/18 20:42 wnwd 68 yo female head ncat neck supple lungs cta b/l cvs [id number] abd nontender ext no edema skin warm and dry neuro alert,moving all extremities - Medical Decision Making 11/16/18 00:39 pt p/w severe headache with no focal deficits. Pt admitted for further neurological evaluation
[2018-11-15] MEDS ORDERED: ACETAMINOPHEN 325 MG TABLET (FP) PO PRN (21:32)
[2018-11-15] MEDS: ARFORMOTEROL TARTRATE 15 MCG/2 ML VIAL NEB SCH (22:15)
[2018-11-16] MEDS ORDERED: IBUPROFEN 600 MG TABLET (FP) PO PRN (00:38)
--- NOTE | 2018-11-16 00:54 | HP ---
CHIEF COMPLAINT: Headache PCP: Dr. Radha Charles HISTORY OF PRESENT ILLNESS: 68 y/o F with PMHx of Hashimotos Thyroiditis, CAD s/p Stent, COPD (Not on Home O2), Restless leg Syndrome, Anemia presents with worsening headache and nausea after choking on popcorn. Patient was recently discharged from [facility] after expereincing Transient amnesia. At this time, imaging was done, neurology was consulted and patient was instructed to follow up for an out patient EEG. Today , while chewing on some popcorn, patient believes she inhaled (rather than swallowing) and feels popcorn traveled down her trachea causing her to choke. After coughing significantly, she began to experience a 10/10 pain that traveled from her Occpital region to her b/l temporal area, prompting her to visit the ED. During my interview, her headache now felt "more like a hangover, " 3-4/10. Patient has not experienced any repeat amnesia since discharge. Patient has reduced her home dose of Miripex; has been taking 1/2 dose for the past 3 days because she believes this is contributing to her headache. Additionally patient endorses yellow phlegm since her last COPD exacerbation 2 months ago, nausea without vomiting, and Chronic constipation. Denies fevers, chills, chest pain, SOB, Vomiting, diarrhea. 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 Ambulation: Without assistance Residence: Home with Family History: Brother: Parkinsons Mother: Alzhemiers, Dementia, Cardiac disease Allergies No Known Drug Allergies Allergy (Verified 11/15/18 14:55) wheat Adverse Reaction (Intermediate, Verified 11/15/18 14:55) joint pain HOME MEDICATIONS: Home Medications Medication Instructions Recorded Arformoterol Tartrate [Brovana -] 1 neb NEB BID #60 vial 02/06/13 Montelukast Na [Singulair -] 10 mg PO HS #30 tablet 02/06/13 Tiotropium [place] [Spiriva] 1 inh IH DAILY #1 inh 02/06/13 Aspirin [ASA -] 81 mg PO DAILY 12/23/13 Triamcinolone Acetonide [Nasacort] 10.8 ml NS DAILY 09/16/15 Levothyroxine Sodium [Synthroid] 75 mcg PO DAILY 11/15/18 Liothyronine Sodium [Cytomel] 5 mg PO DAILY 11/15/18 REVIEW OF SYSTEMS As per [facility] PHYSICAL EXAMINATION Vital Signs - 24 hr 11/15/18 11/15/18 14:56 19:20 Temperature 97.5 F L Pulse Rate 74 Respiratory 18 Rate Blood Pressure 179/83 H O2 Sat by Pulse 99 100 Oximetry (%) GENERAL: A&Ox3, NAD HEAD: NCAT EYES: PERRL, EOMI EARS, NOSE, THROAT: Oropharynx clear without exudates. Moist mucous membranes. NECK: No JVD LUNGS: Breath sounds equal, clear to auscultation bilaterally. No wheezes HEART: Regular rate and rhythm, normal S1 and S2 without murmur ABDOMEN: Soft, nontender, not distended, + bowel sounds, no guarding EXTREMITIES: 2+ pulses, No calf tenderness. No peripheral edema. NEUROLOGICAL: Cranial nerves II-XII intact. Normal speech. Gross sensation intact globally. 5/5 Muscle strength to handgrip, elbow flexion/extension, Hip flexion, plantarflexion, dorsiflexion. No dysmetria (Finger to nose, heel to carmona) or dyskinesia (rapid hand movements) noted. Normal gait however patient mentions occasionally drifts left. Laboratory Results - last 24 hr 11/15/18 11/15/18 11/15/18 15:00 15:00 15:00 WBC 12.2 H RBC 4.26 Hgb 14.6 Hct 41.0 MCV 96.3 H MCH 34.3 H MCHC 35.7 RDW 13.2 Plt Count 391 MPV 8.5 Absolute Neuts (auto) 7.3 Neutrophils % 59.6 Lymphocytes % 27.3 D Monocytes % 8.1 Eosinophils % 4.0 Basophils % 1.0 Nucleated RBC % 0 ESR PT with INR 12.10 INR 1.03 Sodium 143 Potassium 4.1 Chloride 112 H Carbon Dioxide 23 Anion Gap 8 BUN 27 H Creatinine 1.1 Creat Clearance w eGFR 49.39 Random Glucose 104 Calcium 9.5 Total Bilirubin 0.4 AST 24 ALT 32 Alkaline Phosphatase 92 Total Protein 7.0 Albumin 4.2 11/15/18 17:16 WBC RBC Hgb Hct MCV MCH MCHC RDW Plt Count MPV Absolute Neuts (auto) Neutrophils % Lymphocytes % Monocytes % Eosinophils % Basophils % Nucleated RBC % ESR 7 PT with INR INR Sodium Potassium Chloride Carbon Dioxide Anion Gap BUN Creatinine Creat Clearance w eGFR Random Glucose Calcium Total Bilirubin AST ALT Alkaline Phosphatase Total Protein Albumin ASSESSMENT/PLAN: 68 y/o F with PMHx of Hashimotos Thyroiditis, CAD s/p Stent, COPD (Not on Home O2), Restless leg Syndrome, who was recently discharged on 11/12, presents with worsening headache and nausea. #Intactable Headache -Imaging from last visit reviewed -Head CT Without contrast done in ED -Etiology remains unclear, however given previous MRI findings of Demylenation, patient will likely benefit from Head CT with contrast and Spinal Tap -Improved with benadryl/reglan/ofirmev given in ED; Tylenol and Ibuprofen PRN ordered -EEG, Lyme studies ordered -Neurology Consult pending #Elevated BP -Initial BP was elevated, Repeat BP was normal -Continue to monitor #Hx of Hashimotos Thyroiditis -TSH done previous visit 0.11 -Continue home dose [place] Thyroid #Hx of COPD (Not on Home O2) -Continue home dose Singulair, Spiriva, Brovana, Nasacprt. Asmanex #FEN -PO Fluids -Lytes WNL -Sodium controlled diet #PPx -DVT: Lovenox Dispo: Observation, Will need Med-Rec Visit type - Emergency Visit Emergency Visit: Yes ED Registration Date: 11/15/18 Care time: The patient presented to the Emergency Department on the above date and was hospitalized for further evaluation of their emergent condition. - New Patient This patient is new to me today: Yes Date on this admission: 11/16/18 - Critical Care Critical Care patient: No
[2018-11-16] MEDS: IBUPROFEN 600 MG TABLET (FP) PO PRN ×2 (05:38→14:27)
[2018-11-16] MEDS ORDERED: THYROID 30 MG TABLET PO SCH (07:00)
[2018-11-16 07:23] LABS: BASO % 0.5 % (0-2.0); EOS % 6.3 % (0-4.5); HEMATOCRIT 37.2 % (32.4-45.2); HEMOGLOBIN 13.1 GM/dL (10.7-15.3); LYMPH % 29.2 % (8-40); MCH 34.1 pg (25.7-33.7); MCHC 35.2 g/dl (32.0-36.0); MEAN PLT VOLUME 9.1 fl (7.5-11.1); MONO % 10.8 % (3.8-10.2); NEUT % 53.2 % (42.8-82.8); PLATELET COUNT 341 K/MM3 (134-434); RBC 3.84 M/mm3 (3.60-5.2); RDW 13.4 % (11.6-15.6); WHITE BLOOD COUNT 8.9 K/mm3 (4.0-10.0)
[2018-11-16 07:54] LABS: ALBUMIN 3.3 g/dl (3.4-5.0); ALK PHOS 72 U/L (45-117); ANION GAP 9 MMOL/L (8-16); BILIRUBIN,TOTAL 0.4 mg/dL (0.2-1); BLOOD UREA NITROGEN 21 mg/dL (7-18); CALCIUM 8.4 mg/dL (8.5-10.1); CHLORIDE 114 mmol/L (98-107); CO2 19 mmol/L (21-32); CREATININE 0.9 mg/dL (0.55-1.3); GLUCOSE,RANDOM 75 mg/dL (74-106); MAGNESIUM 2.3 mg/dL (1.8-2.4); PHOSPHOROUS 3.8 mg/dL (2.5-4.9); SGOT/AST 18 U/L (15-37); SGPT/ALT 26 U/L (13-61); SODIUM 143 mmol/L (136-145); TOT PROT 5.6 g/dl (6.4-8.2)
[2018-11-16] MEDS: ARFORMOTEROL TARTRATE 15 MCG/2 ML VIAL NEB SCH (08:16)
--- NOTE | 2018-11-16 08:38 | PN ---
Physical Exam: SUBJECTIVE: Patient seen and examined OBJECTIVE: Vital Signs Period Temp Pulse Resp BP Sys/Golden Pulse Ox Last 24 Hr 97.1 F-98.4 F 62-75 18-20 110-179/57-83 99-100 GENERAL: The patient is awake, alert, and fully oriented, in no acute distress. HEAD: Normal with no signs of trauma. EYES: PERRL, extraocular movements intact, sclera anicteric, conjunctiva clear. No ptosis. ENT: Ears normal, nares patent, oropharynx clear without exudates, moist mucous membranes. NECK: Trachea midline, full range of motion, supple. LUNGS: Breath sounds equal, clear to auscultation bilaterally, no wheezes, no crackles, no accessory muscle use. HEART: Regular rate and rhythm, S1, S2 without murmur, rub or gallop. ABDOMEN: Soft, nontender, nondistended, normoactive bowel sounds, no guarding, no rebound, no hepatosplenomegaly, no masses. EXTREMITIES: 2+ pulses, warm, well-perfused, no edema. NEUROLOGICAL: Cranial nerves II through XII grossly intact. Normal speech, gait not observed. PSYCH: Normal mood, normal affect. SKIN: Warm, dry, normal turgor, no rashes or lesions noted Laboratory Results - last 24 hr 11/15/18 11/15/18 11/15/18 15:00 15:00 15:00 WBC 12.2 H RBC 4.26 Hgb 14.6 Hct 41.0 MCV 96.3 H MCH 34.3 H MCHC 35.7 RDW 13.2 Plt Count 391 MPV 8.5 Absolute Neuts (auto) 7.3 Neutrophils % 59.6 Lymphocytes % 27.3 D Monocytes % 8.1 Eosinophils % 4.0 Basophils % 1.0 Nucleated RBC % 0 ESR PT with INR 12.10 INR 1.03 Sodium 143 Potassium 4.1 Chloride 112 H Carbon Dioxide 23 Anion Gap 8 BUN 27 H Creatinine 1.1 Creat Clearance w eGFR 49.39 Random Glucose 104 Calcium 9.5 Phosphorus Magnesium Total Bilirubin 0.4 AST 24 ALT 32 Alkaline Phosphatase 92 Total Protein 7.0 Albumin 4.2 11/15/18 11/16/18 17:16 06:30 WBC RBC Hgb Hct MCV MCH MCHC RDW Plt Count MPV Absolute Neuts (auto) Neutrophils % Lymphocytes % Monocytes % Eosinophils % Basophils % Nucleated RBC % ESR 7 PT with INR INR Sodium 143 Potassium 4.0 Chloride 114 H Carbon Dioxide 19 L Anion Gap 9 BUN 21 H Creatinine 0.9 Creat Clearance w eGFR > 60 Random Glucose 75 Calcium 8.4 L Phosphorus 3.8 Magnesium 2.3 Total Bilirubin 0.4 AST 18 ALT 26 Alkaline Phosphatase 72 Total Protein 5.6 L Albumin 3.3 L Active Medications Generic Name Dose Route Start Last Admin Trade Name Freq PRN Reason Stop Dose Admin Acetaminophen 650 mg 11/15/18 21:32 11/15/18 22:31 Tylenol - PO 650 mg Q6H PRN Administration FEVER Arformoterol Tartrate 1 amp 11/15/18 22:15 11/16/18 08:16 Brovana (Restricted To Pulmonology/Resp) - NEB 1 amp RBID FRANCES Administration Aspirin 81 mg 11/16/18 10:00 Asa - PO DAILY FRANCES Enoxaparin Sodium 40 mg 11/16/18 10:00 Lovenox - SQ DAILY FRANCES Ibuprofen 600 mg 11/15/18 22:36 11/16/18 05:38 Motrin - PO 600 mg Q6H PRN Administration PAIN LEVEL 1 - 3 Montelukast Sodium 10 mg 11/16/18 22:00 Singulair - PO HS FRANCES Thyroid 30 mg 11/16/18 07:00 11/16/18 06:30 [place] Thyroid - PO 30 mg DAILY@0700 FRANCES Administration Tiotropium [place] 2 puff 11/16/18 10:00 Spiriva Respimat IH DAILY [facility] ASSESSMENT/PLAN:
[2018-11-16] MEDS ORDERED: ACETAMINOPHEN 1000 MG/100 ML VIAL (NON FORMULARY) IVPB ONE (08:57)
[2018-11-16] MEDS ORDERED: PT OWN MED DRAWER 7, Y5N ONE ×2 (09:35→13:19)
--- NOTE | 2018-11-16 09:35 | EKG ---
Test Reason : Blood Pressure : / mmHG Vent. Rate : 067 BPM Atrial Rate : 067 BPM P-R Int : 164 ms QRS Dur : 082 ms QT Int : 416 ms P-R-T Axes : 075 038 072 degrees QTc Int : 439 ms NORMAL SINUS RHYTHM POSSIBLE LEFT ATRIAL ENLARGEMENT POSSIBLE INFERIOR INFARCT , AGE UNDETERMINED ABNORMAL ECG WHEN COMPARED WITH ECG OF 12-NOV-2018 07:55, NO SIGNIFICANT CHANGE WAS FOUND Confirmed by TEDDY ISSA, MAGALIE ([id number]) on 11/16/2018 9:34:54 AM Referred By: Confirmed By:MAGALIE ESPINAL MD
--- NOTE | 2018-11-16 09:50 | CON.NEURO ---
Consult - History of Present Illness History of Present Illness: 68 y/o F with PMHx of Hashimotos Thyroiditis, CAD s/p Stent, COPD (Not on Home O2), Restless leg Syndrome, Anemia presents with worsening headache and nausea after choking on popcorn. Patient was recently discharged from [facility] after experiencing Transient global amnesia. At this time, imaging was done, seen by my service MRI 11/11/18 (-), MRA (-), patient was instructed to follow up for an out patient EEG, holter and echo . on 11/14/18, while chewing on some popcorn , patient believes she inhaled (rather than swallowing) and feels popcorn traveled down her trachea causing her to choke. After coughing significantly, she began to experience a 10/10 pain that traveled from her Occpital region to her b/l temporal area, prompting her to visit the ED. During my interview, her headache now felt "more like a hangover," 3-4/10. Patient has not experienced any repeat amnesia since discharge. Patient has reduced her home dose of Miripex; has been taking 1/2 dose for the past 3 days because she believes this is contributing to her headache. Additionally patient endorses yellow phlegm since her last COPD exacerbation 2 months ago, nausea without vomiting, and Chronic constipation. 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[employer]IC: Yes: Parkinson's, Other (RLS ) Cardio/Vascular: Yes: Aneurysm, CAD Pulmonary: Yes: COPD - Alcohol/Substance Use Hx Alcohol Use: Yes (socially) - Smoking History Smoking history: Never smoked Have you smoked in the past 12 months: No Aproximately how many cigarettes per day: 0 If you are a former smoker, when did you quit?: 25 YRS Home Medications - Allergies Allergies/Adverse Reactions: Allergies Allergy/AdvReac Type Severity Reaction Status Date / Time No Known Drug Allergies Allergy Verified 11/15/18 14:55 wheat AdvReac Intermediate joint pain Verified 11/15/18 14:55 - Home Medications Home Medications: Ambulatory Orders Arformoterol Tartrate [Brovana -] 1 neb NEB BID #60 vial 02/06/13 Montelukast Na [Singulair -] 10 mg PO HS #30 tablet 02/06/13 Tiotropium [place] [Spiriva] 1 inh IH DAILY #1 inh 02/06/13 Aspirin [ASA -] 81 mg PO DAILY 12/23/13 Triamcinolone Acetonide [Nasacort] 10.8 ml NS DAILY 09/16/15 Levothyroxine Sodium [Synthroid] 75 mcg PO DAILY 11/15/18 Liothyronine Sodium [Cytomel] 5 mg PO DAILY 11/15/18 Mometasone Furoate [Asmanex 220Mcg -] 2 inh IH DAILY 11/16/18 Pramipexole Dihydrochloride [Mirapex -] 0.25 mg PO HS 11/16/18 Physical Exam-Neuro Vital Signs: Vital Signs Temperature 98.4 F 11/16/18 06:00 Pulse Rate 75 11/16/18 06:00 Respiratory Rate 20 11/16/18 06:00 Blood Pressure 110/70 11/16/18 06:00 O2 Sat by Pulse Oximetry (%) 100 11/16/18 05:36 Labs: CBC, BMP 11/16/18 06:30 11/16/18 06:30 INR, PTT INR 1.03 (0.83-1.09) 11/15/18 15:00 Assessment/Plan seen as per DR MOULTON 68 y/o F with PMHx of Hashimotos Thyroiditis, CAD s/p Stent, COPD (Not on Home O2), Restless leg Syndrome, Anemia presents with worsening headache and nausea after choking on popcorn. Patient was recently discharged from [facility] after experiencing Transient global amnesia. At this time, imaging was done, seen by my service MRI 11/11/18 (-), MRA (-), patient was instructed to follow up for an out patient EEG, holter and echo . on 11/14/18, while chewing on some popcorn , patient believes she inhaled (rather than swallowing) and feels popcorn traveled down her trachea causing her to choke. After coughing significantly, she began to experience a 10/10 pain that traveled from her Occpital region to her b/l temporal area, prompting her to visit the ED. During my interview, her headache now felt "more like a hangover," 3-4/10. Patient has not experienced any repeat amnesia since discharge. Patient has reduced her home dose of Miripex; has been taking 1/2 dose for the past 3 days because she believes this is contributing to her headache. Additionally patient endorses yellow phlegm since her last COPD exacerbation 2 months ago, nausea without vomiting, and Chronic constipation. recent ESR 7 AP : subacute onset JENKINS , recent TGA , MRI (-), CT (-) ESR was NL, so temporal ateritis less likely ? if related to recent COPD RX vs tension JENKINS vs exertional cough JENKINS ; no hX of migraine no dissection seen on prior scan check ESR /CRP again, responding to tylenol check TSH and thyroid AB if JENKINS persists will consider CTA EEG for TGA episode, though not related to JENKINS DR ONEIL
[2018-11-16] MEDS ORDERED: ENOXAPARIN NA (PORCINE) 40 MG/0.4 ML DISP.SYRIN SQ SCH (10:00)
[2018-11-16] MEDS ORDERED: TIOTROPIUM BROMIDE 2.5 MCG (SPIRIVA) RESPIMAT INHALER IH SCH (10:00)
[2018-11-16] MEDS ORDERED: ASPIRIN 81 MG CHEWABLE TABLETS PO SCH (10:00)
[2018-11-16 11:21] VITALS: BMI 20.1
[2018-11-16 13:24] VITALS: BP 125/48; PULSE 63; TEMP 97.7
--- NOTE | 2018-11-16 14:40 | PN ---
Teaching Attending Note Name of Resident: Amador Jennings ATTENDING PHYSICIAN STATEMENT I saw and evaluated the patient. I reviewed the resident's note and discussed the case with the resident. I agree with the resident's findings and plan as documented with exceptions below. SUBJECTIVE: Patient seen and examined. Headache resolved, ambulating in hallway with no concerns. Tolerating diet. OBJECTIVE: Vital Signs Period Temp Pulse Resp BP Sys/Golden Pulse Ox Last 24 Hr 97.1 F-98.4 F 62-75 18-20 110-179/48-83 99-100 Intake & Output 11/13/18 11/14/18 11/15/18 11/16/18 23:59 23:59 23:59 23:59 Intake Total 450 Balance 450 Weight 110 lb 121 lb General: ambulating in hallway no concerns Chest: CTAB, no rales or wheezing Abdomen:Soft, NT, ND, positive bowel sounds Neuro: AAOX3, power 5/5, facial symmetric, sensation intact and symmetric to light touch, gait normal, cranial nerves II-XII grossly intact, ambulating in hallway Home Medications Medication Instructions Recorded Aspirin [ASA -] 81 mg PO DAILY 12/23/13 Triamcinolone Acetonide [Nasacort] 10.8 ml NS DAILY 09/16/15 Levothyroxine Sodium [Synthroid] 75 mcg PO DAILY 11/15/18 Liothyronine Sodium [Cytomel] 5 mg PO DAILY 11/15/18 Acetaminophen [Tylenol .Regular 650 mg PO Q6H PRN tablet 11/16/18 Strength -] Ibuprofen [Motrin -] 600 mg PO Q6H PRN tablet 11/16/18 Mometasone Furoate [Asmanex 220Mcg 2 inh IH DAILY 11/16/18 -] Pramipexole Dihydrochloride 0.25 mg PO HS 11/16/18 [Mirapex -] Active Medications Acetaminophen (Tylenol -) 650 mg PO Q6H PRN PRN Reason: FEVER Last Admin: 11/15/18 22:31 Dose: 650 mg Arformoterol Tartrate (Brovana (Restricted To Pulmonology/Resp) -) 1 amp NEB RBID [facility] Last Admin: 11/16/18 08:16 Dose: 1 amp Aspirin (Asa -) 81 mg PO DAILY [facility] Last Admin: 11/16/18 09:49 Dose: 81 mg Enoxaparin Sodium (Lovenox -) 40 mg SQ DAILY [facility] Last Admin: 11/16/18 09:49 Dose: 40 mg Ibuprofen (Motrin -) 600 mg PO Q6H PRN PRN Reason: PAIN LEVEL 1 - 3 Last Admin: 11/16/18 14:27 Dose: 600 mg Montelukast Sodium (Singulair -) 10 mg PO HS [facility] Thyroid ([place] Thyroid -) 30 mg PO DAILY@0700 [facility] Last Admin: 11/16/18 06:30 Dose: 30 mg Tiotropium [place] (Spiriva Respimat) 2 puff IH DAILY [facility] Last Admin: 11/16/18 14:22 Dose: 2 puff Laboratory Results - last 24 hr 11/15/18 11/15/18 11/15/18 15:00 15:00 15:00 WBC 12.2 H RBC 4.26 Hgb 14.6 Hct 41.0 MCV 96.3 H MCH 34.3 H MCHC 35.7 RDW 13.2 Plt Count 391 MPV 8.5 Absolute Neuts (auto) 7.3 Neutrophils % 59.6 Lymphocytes % 27.3 D Monocytes % 8.1 Eosinophils % 4.0 Basophils % 1.0 Nucleated RBC % 0 ESR PT with INR 12.10 INR 1.03 Sodium 143 Potassium 4.1 Chloride 112 H Carbon Dioxide 23 Anion Gap 8 BUN 27 H Creatinine 1.1 Creat Clearance w eGFR 49.39 Random Glucose 104 Calcium 9.5 Phosphorus Magnesium Total Bilirubin 0.4 AST 24 ALT 32 Alkaline Phosphatase 92 C-Reactive Protein Total Protein 7.0 Albumin 4.2 11/15/18 11/16/18 11/16/18 17:16 06:30 06:30 WBC 8.9 RBC 3.84 Hgb 13.1 Hct 37.2 MCV 97.0 H MCH 34.1 H MCHC 35.2 RDW 13.4 Plt Count 341 MPV 9.1 Absolute Neuts (auto) 4.7 Neutrophils % 53.2 Lymphocytes % 29.2 Monocytes % 10.8 H Eosinophils % 6.3 H Basophils % 0.5 Nucleated RBC % 0 ESR 7 PT with INR INR Sodium 143 Potassium 4.0 Chloride 114 H Carbon Dioxide 19 L Anion Gap 9 BUN 21 H Creatinine 0.9 Creat Clearance w eGFR > 60 Random Glucose 75 Calcium 8.4 L Phosphorus 3.8 Magnesium 2.3 Total Bilirubin 0.4 AST 18 ALT 26 Alkaline Phosphatase 72 C-Reactive Protein < 0.3 Total Protein 5.6 L Albumin 3.3 L ASSESSMENT AND PLAN: 68 yof with PMHx of Hashimotos Thyroiditis, CAD s/p Stent, COPD (Not on Home O2) , Restless leg Syndrome, Anemia admitted with headache and nausea after choking on popcorn. -Headache/nausea after choking on popcorn -Joseph's thyroiditis -CAD s/p stent -COPD not on home O2 -Restless leg syndrome -Anemia Plan: Symptoms resolved, ambulating well. MRI brain in 09/2018 concerning with demyelinating process. Neurology input noted. Outpatient follow up for repeat ESR/CRP (current presentation and full resolution of symptoms and prior normal ESR argue against temporal arteritis) and TSH/thryoid Ab and EEG. Patient relays understanding about need to follow up with neurology for the same. dc home today with outpatient neurology follow up. Plan discussed with patient in detail, all questions answered.
--- NOTE | 2018-11-16 14:41 | DS ---
Physical Exam: SUBJECTIVE: Patient seen and examined in the AM. Stated that her headache was much improved from previous night. Pt out of bed and tolerating walking around the floor. OBJECTIVE: Vital Signs Period Temp Pulse Resp BP Sys/Golden Pulse Ox Last 24 Hr 97.1 F-98.4 F 62-75 18-20 110-179/48-83 99-100 PHYSICAL EXAM GENERAL: A&O, no acute distress HEAD: Normocephalic, atraumatic. EYES: PERRL, no scleral icterus EARS, NOSE, THROAT: oropharynx clear without exudates. Moist mucous membranes. NECK: supple without lymphadenopathy LUNGS: CTA b/l, no crackles or wheezes HEART: Regular rate and rhythm, normal S1 and S2 without murmur ABDOMEN: Soft, nontender to palpation, normoactive bowel sounds MUSCULOSKELETAL: No bony deformities or tenderness. EXTREMITIES: 2+ pulses, warm, well-perfused. No peripheral edema. NEUROLOGICAL: Cranial nerves II-XII grossly intact. Normal speech. 5/5 strength throughout, no sensation changes. Normal gait observed SKIN: Warm, dry, no rashes or lesions noted LABS Laboratory Results - last 24 hr 11/15/18 11/15/18 11/15/18 15:00 15:00 15:00 WBC 12.2 H RBC 4.26 Hgb 14.6 Hct 41.0 MCV 96.3 H MCH 34.3 H MCHC 35.7 RDW 13.2 Plt Count 391 MPV 8.5 Absolute Neuts (auto) 7.3 Neutrophils % 59.6 Lymphocytes % 27.3 D Monocytes % 8.1 Eosinophils % 4.0 Basophils % 1.0 Nucleated RBC % 0 ESR PT with INR 12.10 INR 1.03 Sodium 143 Potassium 4.1 Chloride 112 H Carbon Dioxide 23 Anion Gap 8 BUN 27 H Creatinine 1.1 Creat Clearance w eGFR 49.39 Random Glucose 104 Calcium 9.5 Phosphorus Magnesium Total Bilirubin 0.4 AST 24 ALT 32 Alkaline Phosphatase 92 C-Reactive Protein Total Protein 7.0 Albumin 4.2 11/15/18 11/16/18 11/16/18 17:16 06:30 06:30 WBC 8.9 RBC 3.84 Hgb 13.1 Hct 37.2 MCV 97.0 H MCH 34.1 H MCHC 35.2 RDW 13.4 Plt Count 341 MPV 9.1 Absolute Neuts (auto) 4.7 Neutrophils % 53.2 Lymphocytes % 29.2 Monocytes % 10.8 H Eosinophils % 6.3 H Basophils % 0.5 Nucleated RBC % 0 ESR 7 PT with INR INR Sodium 143 Potassium 4.0 Chloride 114 H Carbon Dioxide 19 L Anion Gap 9 BUN 21 H Creatinine 0.9 Creat Clearance w eGFR > 60 Random Glucose 75 Calcium 8.4 L Phosphorus 3.8 Magnesium 2.3 Total Bilirubin 0.4 AST 18 ALT 26 Alkaline Phosphatase 72 C-Reactive Protein < 0.3 Total Protein 5.6 L Albumin 3.3 L IMAGING: Head CT: negative for acute fracture, bleed, or acute ischemic changes HOSPITAL COURSE: Date of Admission:11/15/18 Date of Discharge: 11/16/18 HPI on Admission: 68 y/o F with PMHx of Hashimotos Thyroiditis, CAD s/p Stent, COPD (Not on Home O2), Restless leg Syndrome, Anemia presents with worsening headache and nausea after choking on popcorn. Patient was recently discharged from [facility] after expereincing Transient amnesia. At this time, imaging was done, neurology was consulted and patient was instructed to follow up for an out patient EEG. Today , while chewing on some popcorn, patient believes she inhaled (rather than swallowing) and feels popcorn traveled down her trachea causing her to choke. After coughing significantly, she began to experience a 10/10 pain that traveled from her Occpital region to her b/l temporal area, prompting her to visit the ED. During my interview, her headache now felt "more like a hangover, " 3-4/10. Patient has not experienced any repeat amnesia since recent discharge. Patient has reduced her home dose of Miripex; has been taking 1/2 dose for the past 3 days because she believes this is contributing to her headache. Additionally patient endorses yellow phlegm since her last COPD exacerbation 2 months ago, nausea without vomiting, and Chronic constipation. Denies fevers, chills, chest pain, SOB, Vomiting, diarrhea. Hospital Course: Pts Headache resolved overnight. CT Head with no acute findings as mentioned above. She was seen by neurology who recommended outpatient follow up and EEG as outpatient for her recent amnesia (unrelated to headaches). She was deemed medically safe for discharge and instructed to follow up with her primary care physician and neurology for further management of her headaches. Minutes to complete discharge: 35 Discharge Summary Reason For Visit: HEADACHE,NAUSEA Current Active Problems Headache (Acute) Nausea (Acute) Condition: Good - Instructions Diet, Activity, Other Instructions: You were admitted for a severe headache which has now greatly improved/ resolved. A CT scan was done of your head which did not reveal any concerning abnormalities. You were seen by the same neurologist who saw you on your last admission. He recommended an EEG for further workup of your recent amnesia episode prompting your prior admission, which can be done as an outpatient test. At this time you are medically stable for discharge, with follow up in the office for management of your headaches. It is important that you follow up with your primary care physician within one week of discharge from the hospital. It is recommended that you have blood work drawn at that time to have the following levels checked: ESR, CRP, TSH, Thyroid Antibody. It is also important that you follow up with a neurologist as soon as you can for further evaluation, testing and management of your headaches, including but not limited to the recommended EEG. You should continue all of your home medications as they are prescribed prior to this hospital admission. For now you can continue to alternate Tylenol and Motrin for your headaches as needed. Do not take more than 3000 mg of Tylenol in 24 hours. ACTIVITY: Avoid driving, being alone in water, on heights or with children will further discussion with your neurologist. If your severe headache returns, you have concerning vision changes, one sided weakness, facial weakness/droop/difficulty speaking or swallowing, or any other concerning symptoms, it is important that you return to the Emergency Department for further evaluation. Referrals: Don Jiménez DO [Staff Physician] - 1 Week Radha Charles MD [Primary Care Provider] - 1 Week Disposition: HOME - Home Medications Comprehensive Discharge Medication List: Ambulatory Orders Aspirin [ASA -] 81 mg PO DAILY 12/23/13 Triamcinolone Acetonide [Nasacort] 10.8 ml NS DAILY 09/16/15 Levothyroxine Sodium [Synthroid] 75 mcg PO DAILY 11/15/18 Liothyronine Sodium [Cytomel] 5 mg PO DAILY 11/15/18 Acetaminophen [Tylenol .Regular Strength -] 650 mg PO Q6H PRN tablet 11/16/18 Ibuprofen [Motrin -] 600 mg PO Q6H PRN tablet 11/16/18 Mometasone Furoate [Asmanex 220Mcg -] 2 inh IH DAILY 11/16/18 Pramipexole Dihydrochloride [Mirapex -] 0.25 mg PO HS 11/16/18 This patient is new to me today: Yes Date on this admission: 11/17/18 Emergency Visit: Yes ED Registration Date: 11/15/18 Care time: The patient presented to the Emergency Department on the above date and was hospitalized for further evaluation of their emergent condition. Critical Care patient: No - Discharge Referral Referred to [facility] No
[2018-11-16] MEDS ORDERED: MONTELUKAST NA 10 MG TABLET PO SCH (22:00)
== END 2018-11-16 15:44 | disposition home or self-care (01) ==
LOC: JER 14:46 → JERBED 19:24 → INTOOBSV 19:24 → J5S 21:21
PROVIDERS: ADMIT Internal Medicine; ATTEND Hospitalist
PROC: 3E033NZ Introduction of Analgesics, Hypnotics, Sedatives into Peripheral Vein, Percutaneous Approach (ICD-10-PCS; principal; 2018-11-15)
PROC: 3E033GC Introduction of Other Therapeutic Substance into Peripheral Vein, Percutaneous Approach (ICD-10-PCS; 2018-11-15)
PROC: 3E013GC Introduction of Other Therapeutic Substance into Subcutaneous Tissue, Percutaneous Approach (ICD-10-PCS; 2018-11-15)
PROC: 3E0F7GC Introduction of Other Therapeutic Substance into Respiratory Tract, Via Natural or Artificial Opening (ICD-10-PCS; 2018-11-15)
DX: R51 Headache (principal); R11.0 Nausea; R03.0 Elevated blood-pressure reading, without diagnosis of hypertension; E06.3 Autoimmune thyroiditis; J44.9 Chronic obstructive pulmonary disease, unspecified; G25.81 Restless legs syndrome; I25.10 Atherosclerotic heart disease of native coronary artery without angina pectoris; Z95.5 Presence of coronary angioplasty implant and graft; Z79.82 Long term (current) use of aspirin
CPT/HCPCS: 36415; 70450-TC; 80053; 83735; 84100; 85025; 85610; 85651; 86140; 93005; 93010; 94640; 96372; 96374; 96375; 99284-25; G0378; J0131

== ENCOUNTER 2020-05-31 11:55 | Emergency (ER) | payer OTHER, BC ==
--- NOTE | 2020-05-31 12:09 | PDOC ---
Rapid Medical Evaluation Time Seen by Provider: 05/31/20 12:05 Medical Evaluation: Allergies Allergy/AdvReac Type Severity Reaction Status Date / Time No Known Drug Allergies Allergy Verified 11/15/18 14:55 wheat AdvReac Intermediate joint pain Verified 11/15/18 14:55 05/31/20 12:07 I performed a brief in-person evaluation of this patient. 69 y/o female with L thumb pain and discoloration after lifting a planter 4-5 days ago. The patient states the discoloration is worse in the morning. Pertinent physical exam findings: L thumb slight purplish discoloration appreciated. Radial pulse 2+. I have ordered the following: L hand xray Patient to proceed to FT for further evaluation. Discharge Disposition - Diagnosis Pain of left thumb - Referrals - Patient Instructions - Post Discharge Activity
[2020-05-31 12:16] VITALS: BP 124/60; PULSE 82; TEMP 98; BMI 20.2
--- NOTE | 2020-05-31 12:32 | PDOC ---
History of Present Illness - General Chief Complaint: Injury Stated Complaint: INJURY Time Seen by Provider: 05/31/20 12:05 History Source: Patient - History of Present Illness Occurred: reports: other Upper Extremity Pain Location: left: thumb Past History - Medical History Allergies/Adverse Reactions: Allergies Allergy/AdvReac Type Severity Reaction Status Date / Time No Known Drug Allergies Allergy Verified 05/31/20 12:15 wheat AdvReac Intermediate joint pain Verified 05/31/20 12:15 Home Medications: Ambulatory Orders Aspirin [ASA -] 81 mg PO DAILY 12/23/13 Triamcinolone Acetonide [Nasacort] 10.8 ml NS DAILY 09/16/15 Levothyroxine Sodium [Synthroid] 75 mcg PO DAILY 11/15/18 Liothyronine Sodium [Cytomel] 5 mg PO DAILY 11/15/18 Acetaminophen [Tylenol .Regular Strength -] 650 mg PO Q6H PRN tablet 11/16/18 Ibuprofen [Motrin -] 600 mg PO Q6H PRN tablet 11/16/18 Mometasone Furoate [Asmanex 220Mcg -] 2 inh IH DAILY 11/16/18 Pramipexole Dihydrochloride [Mirapex -] 0.25 mg PO HS 11/16/18 Anemia: (VEIN INFECTED HOSPITALIZED X 1 WEEK) Cardiac Disorders: Yes (stent 2012) COPD: Yes Thyroid Disease: Yes - Surgical History Abdominal Surgery: Yes (ectopic ) Cardiac Surgery: Yes (STENT PLACED 07/20/13) Neurologic Surgery: Yes (HEADINJURY) - Immunization History Immunization Up to Date: (FLU 2011 AND PNA 2009) - Psycho-Social/Smoking History Smoking Status: No Smoking History: Former smoker Have you smoked in the past 12 months: No Number of Cigarettes Smoked Daily: 0 If you are a former smoker, when did you quit?: 25 yrs ago Information on smoking cessation initiated: No - Substance Abuse Hx (Audit-C & DAST Scrn) How often the patient has a drink containing alcohol: Never Score: In Men: 4 or > Positive; In Women: 3 or > Positive: 0 Screen Result (Pos requires Nsg. Audit-10AR): Negative In the last yr the pt used illegal drug/Rx for NonMed reason: No Score: Yes response is considered Positive: 0 Screen Result (Positive result requires Nsg. DAST-10): Negative Review of Systems - Review of Systems Constitutional: No: Chills, Fever Musculoskeletal: Yes: Joint Pain. No: Joint Swelling *Physical Exam - Vital Signs Last Vital Signs Temp Pulse Resp BP Pulse Ox 98 F 82 19 124/60 99 05/31/20 12:02 05/31/20 12:02 05/31/20 12:02 05/31/20 12:02 05/31/20 12:02 - Physical Exam General Appearance: Yes: Appropriately Dressed. No: Apparent Distress HEENT: positive: Normal Voice Neck: positive: Supple Respiratory/Chest: negative: Respiratory Distress Extremity: positive: Normal Inspection, Normal Range of Motion. negative: Tender, Swelling, Erythema Integumentary: positive: Dry, Warm Neurologic: positive: Fully Oriented, Alert, Normal Mood/Affect Medical Decision Making - Medical Decision Making 05/31/20 12:27 69 yo F, no sig hx, here w/ L thumb "ache". States pain started 5 days ago after lifting heavy pot. Admits pain is much better but that at some point thumb appeared "red" and now concerned for covid given that some pt's with covid reported red hand and feet per pt. Pt has no sxs otherwise. Pt well jane and stable w/ normal exam. Dc w/ reassurance Discharge - Discharge Information Problems reviewed: Yes Clinical Impression/Diagnosis: Pain of left thumb Condition: Good Disposition: HOME - Follow up/Referral - Patient Discharge Instructions Patient Printed Discharge Instructions: Finger Sprain Additional Instructions: Based on your exam, there was no indication of serious condition Please follow up with your PMD if pain persists - Post Discharge Activity
== END 2020-05-31 12:31 | disposition home or self-care (01) ==
LOC: JER 11:55
DX: M79.645 Pain in left finger(s) (principal)
CPT/HCPCS: 99282-25

== ENCOUNTER 2020-12-11 08:00 | Inpatient (IN) | payer OTHER, BC ==
[2020-12-11] MEDS ORDERED: PROPOFOL 20 ML ONE ×5 (10:39→13:43)
[2020-12-11] MEDS ORDERED: MIDAZOLAM HCL 2 MG/2 ML SINGLE DOSE VIAL ONE (10:40)
[2020-12-11] MEDS ORDERED: ROCURONIUM BROMIDE 50 MG/5 ML VIAL ONE (10:40)
[2020-12-11] MEDS ORDERED: LIDOCAINE HCL/PF 2% SDV 5ML VIAL ONE (10:41)
[2020-12-11] MEDS ORDERED: THROMBIN (RECOMBINANT) 5,000 UNIT VIAL TP ONE ×2 (10:54→12:28)
[2020-12-11] MEDS ORDERED: VANCOMYCIN 1,000 MG VIAL (RESTRICTED TO ID ONLY) ONE (11:34)
[2020-12-11] MEDS ORDERED: ceFAZolin SODIUM 1 GM VIAL ONE (11:34)
[2020-12-11] MEDS ORDERED: VANCOMYCIN 1,000 MG VIAL (RESTRICTED TO ID ONLY) IVPB ONE (11:35)
[2020-12-11] MEDS ORDERED: DEXAMETHASONE SOD PHOSPHATE 4 MG/1 ML VIAL ONE (11:36)
[2020-12-11] MEDS ORDERED: ONDANSETRON 4 MG/2 ML VIAL ONE (11:36)
[2020-12-11] MEDS ORDERED: MINERAL OIL 25 ML OIL ONE (12:14)
[2020-12-11] MEDS ORDERED: ceFAZolin SODIUM 1 GM VIAL IVPB ONE (13:14)
[2020-12-11] MEDS ORDERED: GLYCOPYRROLATE 0.2 MG/1 ML VIAL ONE (14:16)
[2020-12-11] MEDS ORDERED: BUPIVACAINE HCL/PF 0.25% (2.5MG/ML) 10 ML VIAL ONE (14:17)
[2020-12-11] MEDS ORDERED: NEOSTIGMINE METHYLSULFATE 0.5 MG/1 ML - 10 ML MDV ONE (14:17)
[2020-12-11] MEDS ORDERED: BUPIVACAINE HCL/PF 0.25% (2.5MG/ML) 10 ML VIAL IJ ONE (14:19)
[2020-12-11] MEDS ORDERED: BACITRACIN 15 GM TUBE TOPICAL OINTMENT ONE (14:37)
[2020-12-11] MEDS ORDERED: METOPROLOL TARTRATE 5 MG/5 ML VIAL ONE (14:52)
[2020-12-11] MEDS ORDERED: D5-1/2NS+20 MEQ KCL - 1,000 ML IV SCH (15:00)
[2020-12-11] MEDS ORDERED: D5-1/2NS+20 MEQ KCL - 20 MEQ/1,000 ML INFUS.BAG IV SCH (15:00)
[2020-12-11] MEDS ORDERED: PROMETHAZINE HCL 25 MG/1 ML VIAL IVPB PRN (15:01)
[2020-12-11] MEDS ORDERED: DEXAMETHASONE SOD PHOSPHATE 4 MG/1 ML VIAL IVPUSH PRN (15:01)
[2020-12-11] MEDS ORDERED: PCA PUMP NR ONE ×2 (15:15→15:34)
[2020-12-11] MEDS ORDERED: HYDROmorphone *PCA* 10MG/50ML DISP.SYRIN PCA SCH (15:15)
[2020-12-11] MEDS ORDERED: LACTATED RINGERS SOLUTION 1,000 ML IV SCH (15:15)
[2020-12-11] MEDS: diazePAM 5 MG TABLET PO SCH ×2 (16:00→21:32)
[2020-12-11 16:01] LABS: HEMATOCRIT 41.2 % (32.4-45.2); HEMOGLOBIN 13.9 GM/dl (10.7-15.3); MCH 33.3 pg (25.7-33.7); MCHC 33.8 g/dl (32.0-36.0); MEAN CELL VOLUME 98.7 fl (80-96); MEAN PLT VOLUME 8.5 fl (7.5-11.1); PLATELET COUNT 385 K/MM3 (134-434); RBC 4.17 M/mm3 (3.60-5.2); RDW 12.5 % (11.6-15.6); WHITE BLOOD COUNT 17.2 K/mm3 (4.0-10.8)
[2020-12-11 16:18] LABS: CALCIUM 8.7 mg/dl (8.5-10); CREATININE 1.1 mg/dl (0.55-1.3); POTASSIUM 5.3 mmol/L (3.5-5.1)
[2020-12-11] MEDS: CEFAZOLIN 1 GM/D5W 1 GM/50 ML BAG IVPB SCH (18:26)
[2020-12-11] MEDS: ONDANSETRON 4 MG/2 ML VIAL IVPUSH PRN (19:25)
[2020-12-11] MEDS: MONTELUKAST NA 10 MG TABLET PO SCH (21:32)
[2020-12-11] MEDS: PRAMIPEXOLE DIHYDROCHLORIDE 0.25 MG TABLET PO SCH (21:32)
[2020-12-11] MEDS: ARFORMOTEROL TARTRATE 15 MCG/2 ML VIAL NEB SCH (21:32)
[2020-12-11] MEDS: DOCUSATE SODIUM 100 MG CAPSULE (FP) PO SCH (21:33)
[2020-12-11] MEDS: SULFAMETHOXAZOLE/TRIMETHOPRIM 800MG/160MG D.S. TABLET PO SCH (21:33)
[2020-12-12] MEDS: ACETAMINOPHEN 325 MG TABLET (FP) PO PRN ×2 (01:56→17:57)
[2020-12-12] MEDS: ONDANSETRON 4 MG/2 ML VIAL IVPUSH PRN ×3 (01:58→09:45)
[2020-12-12] MEDS: CEFAZOLIN 1 GM/D5W 1 GM/50 ML BAG IVPB SCH ×2 (01:59→10:50)
[2020-12-12] MEDS: DOCUSATE SODIUM 100 MG CAPSULE (FP) PO SCH ×3 (05:56→21:27)
[2020-12-12] MEDS: diazePAM 5 MG TABLET PO SCH ×3 (05:56→21:27)
[2020-12-12] MEDS: LEVOTHYROXINE NA 75 MCG TABLET (FP) PO SCH (06:32)
[2020-12-12] MEDS: ARFORMOTEROL TARTRATE 15 MCG/2 ML VIAL NEB SCH (08:50)
[2020-12-12] MEDS: LIOTHYRONINE SODIUM 5 MCG TABLET PO SCH (10:50)
[2020-12-12] MEDS: SULFAMETHOXAZOLE/TRIMETHOPRIM 800MG/160MG D.S. TABLET PO SCH ×2 (10:50→21:27)
[2020-12-12] MEDS ORDERED: PCA PUMP NR ONE ×2 (12:04→12:19)
[2020-12-12] MEDS: oxyCODONE HCL 5 MG TABLET PO PRN ×2 (16:29→21:27)
[2020-12-12] MEDS: PRAMIPEXOLE DIHYDROCHLORIDE 0.25 MG TABLET PO SCH (21:26)
[2020-12-12] MEDS: BISACODYL 10 MG SUPP.RECT RC PRN (21:27)
[2020-12-12] MEDS: MONTELUKAST NA 10 MG TABLET PO SCH (21:27)
[2020-12-13] MEDS: ONDANSETRON 4 MG/2 ML VIAL IVPUSH PRN ×2 (01:28→21:13)
[2020-12-13] MEDS: diazePAM 5 MG TABLET PO SCH (06:00)
[2020-12-13] MEDS ORDERED: CEFAZOLIN 1 GM in DEXTROSE 5%-WATER - 50 ML IVPB SCH (06:45)
[2020-12-13] MEDS: LEVOTHYROXINE NA 75 MCG TABLET (FP) PO SCH (06:58)
[2020-12-13] MEDS: DOCUSATE SODIUM 100 MG CAPSULE (FP) PO SCH ×3 (06:58→21:14)
[2020-12-13] MEDS: oxyCODONE HCL 5 MG TABLET PO PRN (06:58)
[2020-12-13 07:44] LABS: HEMATOCRIT 37.8 % (32.4-45.2); HEMOGLOBIN 13.2 GM/dl (10.7-15.3); MCH 34.2 pg (25.7-33.7); MCHC 34.9 g/dl (32.0-36.0); MEAN PLT VOLUME 8.6 fl (7.5-11.1); PLATELET COUNT 312 K/MM3 (134-434); RBC 3.86 M/mm3 (3.60-5.2); RDW 12.2 % (11.6-15.6)
[2020-12-13 07:49] LABS: CREATININE 0.6 mg/dl (0.55-1.3); POTASSIUM 4.1 mmol/L (3.5-5.1)
[2020-12-13 08:34] LABS: PLATELET ESTIMATE ADEQUATE
[2020-12-13] MEDS: CEFAZOLIN 1 GM/D5W 1 GM/50 ML BAG IVPB SCH ×3 (08:55→22:44)
[2020-12-13] MEDS: ARFORMOTEROL TARTRATE 15 MCG/2 ML VIAL NEB SCH ×3 (08:55→20:04)
[2020-12-13] MEDS ORDERED: DEXTROSE 5%-NORMAL SALINE 1,000 ML IV SCH (09:00)
[2020-12-13] MEDS: SULFAMETHOXAZOLE/TRIMETHOPRIM 800MG/160MG D.S. TABLET PO SCH ×2 (09:41→21:14)
[2020-12-13] MEDS: LIOTHYRONINE SODIUM 5 MCG TABLET PO SCH (09:42)
[2020-12-13] MEDS ORDERED: diazePAM 2 MG TABLET PO SCH (10:15)
[2020-12-13] MEDS: diazePAM 2 MG TABLET PO SCH ×2 (14:47→21:15)
[2020-12-13 15:54] LABS: ALBUMIN 3.1 g/dl (3.4-5.0); BILIRUBIN,TOTAL 0.5 mg/dl (0.2-1); CALCIUM 8.3 mg/dl (8.5-10); CREATININE 0.6 mg/dl (0.55-1.3); POTASSIUM 3.7 mmol/L (3.5-5.1); TOT PROT 5.5 g/dl (6.4-8.2)
[2020-12-13] MEDS: ACETAMINOPHEN 1000 MG/100 ML VIAL (NON FORMULARY) IVPB PRN ×2 (15:57→21:31)
[2020-12-13] MEDS: SODIUM CHLORIDE 1,000 ML IV SCH (17:32)
[2020-12-13] MEDS: ENOXAPARIN NA (PORCINE) 40 MG/0.4 ML DISP.SYRIN SQ SCH (17:32)
[2020-12-13] MEDS: MONTELUKAST NA 10 MG TABLET PO SCH (21:14)
[2020-12-13] MEDS: PRAMIPEXOLE DIHYDROCHLORIDE 0.25 MG TABLET PO SCH (21:14)
[2020-12-14] MEDS: LEVOTHYROXINE NA 75 MCG TABLET (FP) PO SCH (06:23)
[2020-12-14] MEDS: DOCUSATE SODIUM 100 MG CAPSULE (FP) PO SCH ×3 (06:23→21:33)
[2020-12-14] MEDS: diazePAM 2 MG TABLET PO SCH ×3 (06:23→21:34)
[2020-12-14] MEDS: CEFAZOLIN 1 GM/D5W 1 GM/50 ML BAG IVPB SCH ×3 (06:29→22:33)
[2020-12-14] MEDS: ACETAMINOPHEN 1000 MG/100 ML VIAL (NON FORMULARY) IVPB PRN (06:30)
[2020-12-14 08:16] LABS: BASO % 0.8 % (0-2.0); EOS % 0.8 % (0-4.5); HEMATOCRIT 37.6 % (32.4-45.2); HEMOGLOBIN 12.7 GM/dl (10.7-15.3); LYMPH % 7.8 % (8-40); MCH 32.9 pg (25.7-33.7); MCHC 33.7 g/dl (32.0-36.0); MEAN CELL VOLUME 97.6 fl (80-96); MEAN PLT VOLUME 8.9 fl (7.5-11.1); MONO % 10.1 % (3.8-10.2); NEUT % 80.5 % (42.8-82.8); PLATELET COUNT 327 K/MM3 (134-434); RBC 3.86 M/mm3 (3.60-5.2); RDW 11.9 % (11.6-15.6); WHITE BLOOD COUNT 12.9 K/mm3 (4.0-10.8)
[2020-12-14] MEDS ORDERED: BENZOCAINE/MENTH/CETYLPYRD CL 1 EACH LOZENGE MM PRN (09:19)
[2020-12-14] MEDS: SULFAMETHOXAZOLE/TRIMETHOPRIM 800MG/160MG D.S. TABLET PO SCH (09:44)
[2020-12-14] MEDS: LIOTHYRONINE SODIUM 5 MCG TABLET PO SCH (09:44)
[2020-12-14] MEDS: ARFORMOTEROL TARTRATE 15 MCG/2 ML VIAL NEB SCH ×2 (09:45→21:33)
[2020-12-14] MEDS: ENOXAPARIN NA (PORCINE) 40 MG/0.4 ML DISP.SYRIN SQ SCH (09:45)
[2020-12-14 09:54] LABS: CALCIUM 8.5 mg/dl (8.5-10); CREATININE 0.6 mg/dl (0.55-1.3); POTASSIUM 3.8 mmol/L (3.5-5.1); URIC ACID 1.9 mg/dl (2.6-7.2)
[2020-12-14] MEDS: PANTOPRAZOLE 40 MG TABLET PO SCH (10:00)
[2020-12-14] MEDS: POLYETHYLENE GLYCOL 3350 119 GM BTL PO SCH (10:00)
[2020-12-14] MEDS: oxyCODONE HCL 5 MG TABLET PO PRN ×2 (12:02→18:45)
[2020-12-14] MEDS: BISACODYL 10 MG SUPP.RECT RC PRN (18:45)
[2020-12-14] MEDS: PRAMIPEXOLE DIHYDROCHLORIDE 0.25 MG TABLET PO SCH (21:34)
[2020-12-14] MEDS: MONTELUKAST NA 10 MG TABLET PO SCH (21:34)
[2020-12-14] MEDS: ACETAMINOPHEN 325 MG TABLET (FP) PO PRN (22:16)
[2020-12-15] MEDS: DOCUSATE SODIUM 100 MG CAPSULE (FP) PO SCH ×3 (06:56→21:46)
[2020-12-15] MEDS: diazePAM 2 MG TABLET PO SCH ×3 (06:56→21:46)
[2020-12-15] MEDS: CEFAZOLIN 1 GM/D5W 1 GM/50 ML BAG IVPB SCH ×3 (06:56→23:55)
[2020-12-15] MEDS: LEVOTHYROXINE NA 75 MCG TABLET (FP) PO SCH (06:56)
[2020-12-15] MEDS: oxyCODONE HCL 5 MG TABLET PO PRN ×4 (09:33→21:46)
[2020-12-15] MEDS: ARFORMOTEROL TARTRATE 15 MCG/2 ML VIAL NEB SCH ×2 (09:34→20:48)
[2020-12-15] MEDS: ACETAMINOPHEN 325 MG TABLET (FP) PO PRN ×3 (09:34→23:51)
[2020-12-15] MEDS: ENOXAPARIN NA (PORCINE) 40 MG/0.4 ML DISP.SYRIN SQ SCH (09:35)
[2020-12-15] MEDS: LIOTHYRONINE SODIUM 5 MCG TABLET PO SCH (09:35)
[2020-12-15] MEDS: POLYETHYLENE GLYCOL 3350 119 GM BTL PO SCH (09:36)
[2020-12-15] MEDS: PANTOPRAZOLE 40 MG TABLET PO SCH (09:36)
[2020-12-15 12:45] LABS: BASO % 1.4 % (0-2.0); EOS % 5.3 % (0-4.5); HEMATOCRIT 39.8 % (32.4-45.2); HEMOGLOBIN 13.2 GM/dl (10.7-15.3); LYMPH % 16.8 % (8-40); MCH 32.8 pg (25.7-33.7); MCHC 33.2 g/dl (32.0-36.0); MEAN CELL VOLUME 98.8 fl (80-96); MEAN PLT VOLUME 8.1 fl (7.5-11.1); MONO % 11.6 % (3.8-10.2); NEUT % 64.9 % (42.8-82.8); PLATELET COUNT 355 K/MM3 (134-434); RBC 4.03 M/mm3 (3.60-5.2); RDW 12.3 % (11.6-15.6)
[2020-12-15 12:51] LABS: CALCIUM 8.4 mg/dl (8.5-10); CREATININE 0.6 mg/dl (0.55-1.3); POTASSIUM 3.6 mmol/L (3.5-5.1)
[2020-12-15] MEDS: SODIUM CHLORIDE 1,000 ML IV SCH (15:00)
[2020-12-15] MEDS: PRAMIPEXOLE DIHYDROCHLORIDE 0.25 MG TABLET PO SCH (21:46)
[2020-12-15] MEDS: MONTELUKAST NA 10 MG TABLET PO SCH (21:46)
[2020-12-16] MEDS: diazePAM 2 MG TABLET PO SCH ×2 (06:10→13:18)
[2020-12-16] MEDS: DOCUSATE SODIUM 100 MG CAPSULE (FP) PO SCH ×2 (06:10→13:18)
[2020-12-16] MEDS: LEVOTHYROXINE NA 75 MCG TABLET (FP) PO SCH (06:10)
[2020-12-16] MEDS: CEFAZOLIN 1 GM/D5W 1 GM/50 ML BAG IVPB SCH (07:17)
[2020-12-16] MEDS: oxyCODONE HCL 5 MG TABLET PO PRN ×2 (08:05→13:17)
[2020-12-16] MEDS: ACETAMINOPHEN 325 MG TABLET (FP) PO PRN ×2 (08:05→13:17)
[2020-12-16] MEDS: ARFORMOTEROL TARTRATE 15 MCG/2 ML VIAL NEB SCH (08:29)
[2020-12-16] MEDS: PANTOPRAZOLE 40 MG TABLET PO SCH (10:20)
[2020-12-16] MEDS: POLYETHYLENE GLYCOL 3350 119 GM BTL PO SCH (10:45)
[2020-12-16] MEDS: ENOXAPARIN NA (PORCINE) 40 MG/0.4 ML DISP.SYRIN SQ SCH (10:50)
[2020-12-16] MEDS: LIOTHYRONINE SODIUM 5 MCG TABLET PO SCH (10:50)
[2020-12-16 14:13] VITALS: BP 143/75; PULSE 85; TEMP 98.2
[2020-12-16] MEDS ORDERED: AMITRIPTYLINE HCL 25 MG TABLET PO SCH (22:00)
== END 2020-12-16 15:20 | DRG 460 ==
LOC: FM/S 08:45
PROVIDERS: ADMIT Neurological Surgery; ATTEND Neurological Surgery
PROC: 01NB0ZZ Release Lumbar Nerve, Open Approach (ICD-10-PCS; 2020-12-11)
PROC: 01NR0ZZ Release Sacral Nerve, Open Approach (ICD-10-PCS; 2020-12-11)
PROC: B01BZZZ Fluoroscopy of Spinal Cord (ICD-10-PCS; 2020-12-11)
PROC: 4A1004G Monitoring of Central Nervous Electrical Activity, Intraoperative, Open Approach (ICD-10-PCS; 2020-12-11)
PROC: 0SG0071 Fusion of Lumbar Vertebral Joint with Autologous Tissue Substitute, Posterior Approach, Posterior Column, Open Approach (ICD-10-PCS; principal; 2020-12-11 12:32)
DX: M48.061 Spinal stenosis, lumbar region without neurogenic claudication (principal); E87.1 Hypo-osmolality and hyponatremia; N39.0 Urinary tract infection, site not specified; M54.16 Radiculopathy, lumbar region; M43.16 Spondylolisthesis, lumbar region; R50.82 Postprocedural fever; I25.10 Atherosclerotic heart disease of native coronary artery without angina pectoris; J44.9 Chronic obstructive pulmonary disease, unspecified; G47.33 Obstructive sleep apnea (adult) (pediatric); E03.9 Hypothyroidism, unspecified; K59.09 Other constipation; Z95.5 Presence of coronary angioplasty implant and graft; M81.0 Age-related osteoporosis without current pathological fracture; G25.81 Restless legs syndrome
CPT/HCPCS: 36415; 71045-TC-FY; 72100-TC-FY; 80048; 80051; 80053; 81003; 81015; 82565; 83930; 84300; 84439; 84443; 84520; 84550; 85025; 85027; 87040; 87086; 94060-TC; 94640; 94726-TC; 94729-TC; 94760; 97116-GP; 97162-GP; C9803; J0131; U0003

== ENCOUNTER 2021-07-15 14:14 | Emergency (ER) | payer OTHER, BC ==
[2021-07-15 14:32] VITALS: BP 134/76; PULSE 56; TEMP 98.2; BMI 20.7
== END 2021-07-15 15:43 | disposition home or self-care (01) ==
LOC: JERFT 14:14
DX: J44.9 Chronic obstructive pulmonary disease, unspecified (principal); Z76.0 Encounter for issue of repeat prescription
CPT/HCPCS: 99281-25

== ENCOUNTER 2022-07-17 14:46 | Emergency (ER) | payer OTHER, BC ==
[2022-07-17 15:16] VITALS: BP 110/56; PULSE 70; RESP 20; TEMP 98.4; BMI 20.5
[2022-07-17] MEDS ORDERED: DEXAMETHASONE LIQUID 0.5 MG/5 ML PO ONE (16:00)
[2022-07-17] MEDS ORDERED: DEXAMETHASONE SOD PHOSPHATE 10 MG/1 ML VIAL ONE (16:11)
== END 2022-07-17 21:17 | disposition home or self-care (01) ==
LOC: JER 14:46
DX: J42 Unspecified chronic bronchitis (principal)
CPT/HCPCS: 0241U-QW; 71046-TC-FY; 99284-25